=== PATIENT | female | born 1940 | race Caucasian/White ===

== ENCOUNTER 2020-09-26 06:23 | Inpatient (IN) | payer MEDICARE, OTHER, SELFPAY ==
[2020-09-26] VITALS (29 sets, daily range): BP systolic 95–130; BP diastolic 49–79; PULSE 68–114; RESP 13–32; TEMP 36.4–36.8; O2SAT 91–98; BMI 26.6
--- NOTE | 2020-09-26 06:33 | XR_ITS ---
WS: [id number] Exam: XR chest 1V portable [id number] Date/Time of Exam: 09/26/2020 6:51 AM Reason For Exam: dyspnea/cough Comparison 10/18/2017. Mild cardiac enlargement unchanged. The lungs are fully expanded and clear. Pulmonary vascularity mil dly prominent. No pleural effusions. The mediastinum and bony thorax are unremarkable. XR/XR chest 1V portable [id number] IMPRESSION: 1. No acute cardiopulmonary finding. 2. Slightly increased pulmonary vascularity and mild cardiac enlargement unchan ged.
--- NOTE | 2020-09-26 06:37 | ECG_ITS ---
[facility] Test Date: 2020-09-26 Pat Name: Pooja Bernabe Department: Room: Gender: Female Log Data Technician: : 1940 Requested By: Oz Chan Order Number: [id number] Reading MD: Lynda Granados M.D. Measurements Intervals [place] Rate: 87 P: NM: QRS: 6 QRSD: 90 T: 63 QT: 373 QTc: 451 Interpretive Statements ATRIAL FIBRILLATION with occasional PVCs NONSPECIFIC T-WAVE ABNORMALITY ABNORMAL RHYTHM ECG No previous ECG available for comparison Electronically Signed On 09-26-2020 18:03:27 VIDEO GAME PROGRAMMER by Lynda Granados M.D. [id number]
[2020-09-26 06:55] LABS: Basophils % 0.5 %; Eosinophils # 0.3 10^3/uL (0.0-0.8); Eosinophils % 4.1 %; Hematocrit 50.7 % (37.0-47.0); Hemoglobin 17.1 g/dL (11.5-15.3); Lymphocytes # 2.4 10^3/uL (0.8-4.8); Lymphocytes % 32.1 %; Mean Corpuscular HGB Conc 33.7 g/dL (30.0-36.0); Mean Corpuscular Hemoglobin 31.6 pg (28.0-34.0); Mean Corpuscular Volume 93.7 fL (81-99); Mean Platelet Volume 10.5 fL (7.4-10.4); Monocytes # 0.8 10^3/uL (0.2-0.9); Monocytes % 9.9 %; Neutrophils # 4.04 10^3/uL (1.8-7.7); Nucleated Red Blood Cells % 0 %; Platelet Count 193 10^3/cmm (130-400); Red Blood Count 5.41 10^6/uL (4.1-5.3); White Blood Count 7.6 10^3/uL (4.0-10.0)
[2020-09-26 07:07] LABS: Troponin(5th) Baseline 15 ng/L (0-10)
[2020-09-26 07:17] LABS: Alanine Aminotransferase 20 U/L (0-33); Albumin Level 4.5 g/dL (3.5-5.2); Alkaline Phosphatase 89 IU/L (35-105); Anion Gap 17.5 (5-19); Aspartate Amino Transferase 21 U/L (0-32); Blood Urea Nitrogen 20 mg/dL (8-23); Calcium 9.7 mg/dL (8.5-10.5); Carbon Dioxide 26 mmol/L (22-29); Chloride 100 mmol/L (98-107); Globulin 2.5 g/dL (1.3-4.6); Glucose 164 mg/dL (65-115); Osmolality Calculated 296 mOsm/kg (285-295); Potassium 3.5 mmol/L (3.5-5.1); Sodium 140 mmol/L (136-145); Thyroid Stimulating Hormone 0.76 uIU/mL (0.27-4.20); Total Bilirubin 0.6 mg/dL (0.15-1.2)
--- NOTE | 2020-09-26 07:43 | ED_ITS ---
HPI - Chest Pain General: Chief Complaint: Chest Pain Stated Complaint: AFIB W RVR Time Seen by Provider: 09/26/20 06:27 History of Present Illness: HPI narrative: 80-year-old female with a history of A. fib presents morning in A. fib with RVR to EMS she was given Cardizem bolus and rate decreased. On arrival here she is in range of 100 and then decreased into the 80s. She had some chest discomfort with the palpitation sensation. She has not had previous bypass or PTCA. She tells me in the past she was thought to have atrial fibrillation but then they told her it was due to some valves. She is on metoprolol but she is not on any anticoagulation. MD complaint: chest heaviness Pertinent past history: other (Valvular heart disease) Onset (ago): hour(s) Timing of current episode: episodic Prior episodes: Yes Onset: during rest Pain location: left chest and lateral Pain radiation: none Severity: moderate Quality: heaviness Exacerbating factors: nothing Associated symptoms: Reports nausea and palpitations; Deny abdominal pain, diaphoresis, dyspnea, fever(s), leg edema, sense of impending doom, syncope or vomiting Treatment prior to arrival: none Review of Systems Const: Denies: fever(s) or diaphoresis ENMT: Denies: throat pain, ear or mastoid pain, nasal discharge or nasal conge stion Card: Reports: palpitations; Denies: syncope Resp: Denies: dyspnea GI: Reports: nausea; Denies: abdominal pain or vomiting : Denies: flank pain, difficulty voiding, dysuria, urinary frequency or urinary urgency Skin/Breast: Denies: rash or pruritus PFS ED PFSH: Medical History Aortic insufficiency Diabetes mellitus Dyslipidemia Essential hypertension GERD (gastroesophageal reflux disease) Hypertension Hypothyroidism Mitral regurgitation Narrow complex tachycardia Tinnitus Venous stasis Surgical History History of appendectomy (~2007) [facility] History of dilatation and curettage (~1993) Family History Mother Hypercholesteremia Hypertension Stroke Social History (Reviewed 09/26/20 @ 16:10 by TEMI Chavarria Smoking and tobacco status: never smoked Alcohol intake: never Household members: spouse Marital status: Physical Exam Const: COMMON NORMALS: no acute distress GENERAL APPEARANCE: cooperative and comfortable ORIENTATION/CONSCIOUSNESS: Yes awake, Yes oriented to person, Yes oriented to place and Yes oriented to time HENMT: COMMON NORMALS: normocephalic, atraumatic and hearing grossly normal bilaterally HEAD & SCALP: normocephalic and atraumatic Neck/C-Spine: COMMON NORMALS: no JVD Resp: COMMON NORMALS: normal respiratory effort, No retractions, No use of accessory muscles and clear to auscultation bilaterally AUSCULTATION: clear to auscultation bilaterally Cardio: COMMON NORMALS: no JVD and No murmurs present (Cardio) RATE: tachycardic RHYTHM: abnormal rhythm irregularly irregular GI: COMMON NORMALS: Soft to palpation and No hepatosplenomegaly present AUSCULTATION: Yes normoactive bowel sounds PALPATION: Yes Soft to palpation, No Tenderness to palpation present (GI), No Guarding due to palpation present (GI) and Yes No hepatosplenomegaly present Extremity: COMMON NORMALS: normal to inspection, capillary refill normal, no clubbing, cyanosis or edema, no calf tenderness and no pedal edema Neuro: SENSORIUM/ORIENTATION: Yes oriented to person, Yes oriented to place and Yes oriented to time Skin: COMMON NORMALS: no rashes or lesions noted GENERAL SKIN EXAM: no rashes or lesions noted Course Vital Signs: Vital signs: Vital Signs Temperature 97.7 F 09/26/20 15:08 Pulse Rate 88 09/26/20 15:08 Respiratory Rate 24 H 09/26/20 15:08 Blood Pressure 130/75 09/26/20 15:08 Pulse Oximetry 95 09/26/20 15:08 MDM - Chest Pain MDM Narrative: Medical decision making narrative: Patient intermittently tachycardic given IV and p.o. metoprolol discussed with Dr. Denise and will place on observation for rate control monitor troponins and other symptoms. Lab Data: Labs: Lab Results 09/26/20 09/26/20 09/26/20 Range/Units 06:40 06:40 06:40 WBC 7.6 (4.0-10.0) 10^3/ uL RBC 5.41 H (4.1-5.3) 10^6/u L Hgb 17.1 H (11.5-15.3) g/dL Hct 50.7 H (37.0-47.0) % MCV 93.7 (81-99) fL MCH 31.6 (28.0-34.0) pg MCHC 33.7 (30.0-36.0) g/dL RDW 12.0 L (12.1-15.1) % Plt Count 193 (130-400) 10^3/c mm MPV 10.5 H (7.4-10.4) fL Neut % (Auto) 53.0 % Lymph % (Auto) 32.1 % Cochran % (Auto) 9.9 % Eos % (Auto) 4.1 % Baso % (Auto) 0.5 % Neut # (Auto) 4.04 (1.8-7.7) 10^3/u L Lymph # (Auto) 2.4 (0.8-4.8) 10^3/u L Cochran # (Auto) 0.8 (0.2-0.9) 10^3/u L Eos # (Auto) 0.3 (0.0-0.8) 10^3/u L Baso # (Auto) 0.0 (0.0-0.1) 10^3/u L Nucleated RBC % (a uto) 0 % Nucleated RBCs # 0.0 /100WBC Sodium 140 (136-145) mmol/L Potassium 3.5 (3.5-5.1) mmol/L Chloride 100 (98-107) mmol/L Carbon Dioxide 26 (22-29) mmol/L Anion Gap 17.5 (5-19) BUN 20 (8-23) mg/dL Creatinine 0.6 (0.5-0.9) mg/dL GFR Calculation Not Reportable Glucose 164 H (65-115) mg/dL Calculated Osmolal ity 296 H (285-295) mOsm/k g Calcium 9.7 (8.5-10.5) mg/dL Magnesium (1.7-2.3) mg/dL Total Bilirubin 0.6 (0.15-1.2) mg/dL AST 21 (0-32) U/L ALT 20 (0-33) U/L Alkaline Phosphata se 89 (35-105) IU/L Troponin T Baselin e 15 H (0-10) ng/L Troponin T 120 Min [place] (0-10) ng/L Delta Troponin T (0-10) ABS# Total Protein 7.0 (6.6-8.7) g/dL Albumin 4.5 (3.5-5.2) g/dL Globulin 2.5 (1.3-4.6) g/dL TSH 0.76 (0.27-4.20) uIU/ mL Urine Color (Yellow) Urine Appearance (CLEAR) Urine pH (5-7) Ur Specific Gravit y (1.005-1.030) Urine Protein (Negative) Urine Glucose (UA) (Normal) Urine Ketones (Negative) Urine Blood (Negative) Urine Nitrate (Negative) Urine Bilirubin (Negative) Prot Sulfosalicyli c Acd (Negative) Urine Urobilinogen (Negative) mg/dL Ur Leukocyte Cathleen ase (Negative) Urine RBC (0-2) /hpf Urine WBC (0-5) /hpf Ur Squamous Epith Cells (0-5) /hpf Amorphous Sediment /hpf Urine Bacteria (NONE) /hpf 09/26/20 09/26/20 09/26/20 Range/Units 07:44 08:39 08:39 WBC (4.0-10.0) 10^3/ uL RBC (4.1-5.3) 10^6/u L Hgb (11.5-15.3) g/dL Hct (37.0-47.0) % MCV (81-99) fL MCH (28.0-34.0) pg MCHC (30.0-36.0) g/dL RDW (12.1-15.1) % Plt Count (130-400) 10^3/c mm MPV (7.4-10.4) fL Neut % (Auto) % Lymph % (Auto) % Cochran % (Auto) % Eos % (Auto) % Baso % (Auto) % Neut # (Auto) (1.8-7.7) 10^3/u L Lymph # (Auto) (0.8-4.8) 10^3/u L Cochran # (Auto) (0.2-0.9) 10^3/u L Eos # (Auto) (0.0-0.8) 10^3/u L Baso # (Auto) (0.0-0.1) 10^3/u L Nucleated RBC % (a uto) % Nucleated RBCs # /100WBC Sodium (136-145) mmol/L Potassium (3.5-5.1) mmol/L Chloride (98-107) mmol/L Carbon Dioxide (22-29) mmol/L Anion Gap (5-19) BUN (8-23) mg/dL Creatinine (0.5-0.9) mg/dL GFR Calculation Glucose (65-115) mg/dL Calculated Osmolal ity (285-295) mOsm/k g Calcium (8.5-10.5) mg/dL Magnesium 2.2 (1.7-2.3) mg/dL Total Bilirubin (0.15-1.2) mg/dL AST (0-32) U/L ALT (0-33) U/L Alkaline Phosphata se (35-105) IU/L Troponin T Baselin e (0-10) ng/L Troponin T 120 Min [place] 16.36 H (0-10) ng/L Delta Troponin T 1.36 (0-10) ABS# Total Protein (6.6-8.7) g/dL Albumin (3.5-5.2) g/dL Globulin (1.3-4.6) g/dL TSH (0.27-4.20) uIU/ mL Urine Color Yellow (Yellow) Urine Appearance Clear (CLEAR) Urine pH 8 H (5-7) Ur Specific Gravit y 1.015 (1.005-1.030) Urine Protein Neg (Negative) Urine Glucose (UA) Trace H (Normal) Urine Ketones Negative (Negative) Urine Blood Neg (Negative) Urine Nitrate Negative (Negative) Urine Bilirubin Neg (Negative) Prot Sulfosalicyli c Acd Positive (Negative) Urine Urobilinogen Norm (Negative) mg/dL Ur Leukocyte Cathleen ase Negative (Negative) Urine RBC Rare (0-2) /hpf Urine WBC 0-4 H (0-5) /hpf Ur Squamous Epith Cells 0-4 H (0-5) /hpf Amorphous Sediment 1+ /hpf Urine Bacteria Trace (NONE) /hpf Discharge Plan Discharge Patient Disposition: Placed in Observation Admit Provider: Mason Ly Clinical Impression: Atypical chest pain, Mitral regurgitation, Aortic insufficiency, Essential hypertension, Dyslipidemia, Atrial flutter, Elevated troponin Coding Level of Care Code ED Pole Lift Operator for Candido Bales
[2020-09-26 08:12] LABS: Add Urine Microscopic? YES; Bilirubin Urine Neg (Negative); Blood Urine Neg (Negative); Glucose Urine UA Trace (Normal); Ketones Urine Negative (Negative); Leukocyte Esterase Urine Negative (Negative); Nitrate Urine Negative (Negative); Protein Urine Neg (Negative); Specific Gravity, Urine 1.015 (1.005-1.030); Sulfosalicylic Acid Urine Positive (Negative); Urine Appearance Clear (CLEAR); Urine Color Yellow (Yellow); Urobilinogen Urine Norm (Negative); pH Urine 8 (5-7)
[2020-09-26 08:13] LABS: Add Urine Culture? No; Amorphous Sediment Urine 1+ /hpf; Bacteria Urine TRACE /hpf; RBC Urine RARE /hpf (0-2); Squamous Epithelial Cell Urine 0-4 /hpf (0-5); WBC Urine 0-4 /hpf (0-5)
--- NOTE | 2020-09-26 08:37 | ECG_ITS ---
[facility] Test Date: 2020-09-26 Pat Name: Pooja Bernabe Department: Room: Gender: Female Cowlman: : 1940 Requested By: Oz Chan Order Number: [id number] Quique MD: Lynda Granados M.D. Measurements Intervals [place] Rate: 134 P: MN: QRS: -10 QRSD: 103 T: 82 QT: 288 QTc: 431 Interpretive Statements ATRIAL FLUTTER/TACHYCARDIA WITH RAPID VENTRICULAR RESPONSE POSSIBLE ANTERIOR MYOCARDIAL INFARCTION , PROBABLY OLD [30 ms Q WAVE IN V3/V4, OR R < 0.2 mV IN V4] ABNORMAL RHYTHM ECG Compared to ECG 09/26/2020 06:33:21 Myocardial infarct finding now present Atrial fibrillation no longer present T-wave abnormality no longer present Electronically Signed On 09-26-2020 18:11:27 TDP DISPLAYS ANALYST by Lynda Granados M.D. [id number]
[2020-09-26 09:09] LABS: Troponin 5 2HR 16.36 ng/L (0-10); Troponin 5 2HR Delta 1.36 ABS# (0-10)
[2020-09-26] MEDS: metoprolol tartrate 25 mg Tablet PO (09:10)
[2020-09-26] MEDS: metoprolol tartrate 1 mg/1 mL SDV 5 mL 5 MG IV (09:10)
--- NOTE | 2020-09-26 10:42 | PC.NURSE ---
report called to med surge nurse-hospitalist down to ER and wanting to keep pt down here to start on cardizem gtt.
--- NOTE | 2020-09-26 11:01 | PM.HP ---
Providers/Chief Complaint Admitting Physician: Mason Ly MD Primary Care Provider: Randolph Solares MD Chief Complaint: AFIB W RVR History of Present Illness Pooja Bernabe is a 80 year old female that presents to the emergency department with complaints of palpitations. She reports these have been occurring since around 5 AM. They make her head feel fuzzy and give her a headache. She reports she has had palpitations before but they have only been short-lived. Looking into her previous records there is a diagnosis of tachycardia, not clearly defined an event report from October 2017 that demonstrated sinus rhythm. Old records indicate atrial fibrillation. Patient denies any fever, other illness. She reports no chest pain. She denies any history of Covid or exposure to it. She denies any blood in stool, black or tarry stool. Review of Systems General: Reports: 10 or more systems reviewed and unremarkable except in HPI and below Const: Denies: fever(s) Eyes: Denies: change in vision ENMT: Denies: throat pain Card: Reports: palpitations and irregular heart rhythm Resp: Denies: dyspnea GI: Denies: abdominal pain or nausea : Denies: flank pain Musc: Denies: neck pain Skin/Breast: Denies: rash Neuro: Denies: headache(s) Psych: Denies: anxiety Endo: Denies: polyuria Jun/Lymph: Denies: easy bruising All/Imm: Denies: urticaria Medications/Allergies Home Medications Medication Instructions Recorded Confirmed Last Taken Type aspirin 81 mg tablet,delayed 81 mg PO DAILY@11/01/19 09/26/20 09/25/20 History release coenzyme Q10 100 mg capsule 100 mg PO DAILY@11/01/19 09/26/20 09/25/20 History levothyroxine 125 mcg capsule 125 mcg PO DAILY@11/01/19 09/26/20 09/25/20 History omega-3 fatty acids 500 mg capsule 1,000 mg PO DAILY@11/01/19 09/26/20 Unknown History pravastatin 40 mg tablet 40 mg PO DAILY@11/01/19 09/26/20 09/25/20 History Lew Eye Vitamin 1 tab PO EVERY OTHER DAY 09/26/20 09/26/20 09/25/20 History chlorthalidone 25 mg PO DAILY@09/26/20 09/26/2027/21 History cholecalciferol (vitamin D3) 1,000 - 5,000 unit PO DAILY@12 09/26/20 09/26/20 09/25/20 History [Vitamin D3] cyanocobalamin (vitamin B-12) 100 mcg PO DAILY@12 09/26/20 09/26/20 Unknown History [Vitamin B-12] metoprolol tartrate 25 mg PO DAILY@19 09/26/20 09/26/20 09/25/20 History Allergies Allergy/AdvReac Type Severity Reaction Status Date / Time No Known Allergies Allergy Verified 09/26/20 09:34 PFSH Acute PFSH: Medical History (Updated 09/26/20 @ 12:45 by Mason Ly MD) Aortic insufficiency Diabetes mellitus Dyslipidemia Essential hypertension GERD (gastroesophageal reflux disease) Hypertension Hypothyroidism Mitral regurgitation Narrow complex tachycardia Tinnitus Venous stasis Surgical History (Updated 09/26/20 @ 11:04 by Mason Ly MD) [facility] History of dilatation and curettage (~1993) Family History Mother Hypercholesteremia Hypertension Stroke Social History Smoking and tobacco status: never smoked Alcohol intake: never Household members: spouse Marital status: Vitals/I&O/Wt Last Vital Signs Temp 98.3 F 09/26/20 06:36 Pulse 106 H 09/26/20 08:32 Resp 15 09/26/20 08:32 BP 113/57 09/26/20 08:32 Pulse Ox 97 09/26/20 08:32 Weight last 48 hrs Weight 70.307 kg Physical Exam Narrative: EXAM NARRATIVE: General exam is a white female in no apparent distress with an accelerated heart rate of approximately 130, irregular. A. fib/flutter on compliance monitor. HEENT: Pupils equally round. Oropharynx clear. Neck is supple no lymphadenopathy or thyromegaly Cardiovascular irregular, irregular with a 2/6 systolic murmur Lungs clear no wheezing or crackles Abdomen is soft with positive bowel sounds. No obvious organomegaly was deferred Extremities no cyanosis clubbing or edema, cap refill brisk Skin no rash Neuro no obvious focal deficits. Data : 09/26/20 06:40 09/26/20 06:40 Other data: Troponin is 15 with repeat of 16 and 120 minutes. TSH is normal. LFTs normal. Urinalysis 0-4 whites, rare reds. Chest x-ray per my read mild congestion. EKG demonstrates atrial fibrillation/flutter, borderline left axis deviation, nonspecific ST-T wave changes and occasional PVC. Previous echocardiogram October 2018 demonstrated EF of 55%, 2/4 diastolic dysfunction. Previous nuclear stress test 2017 - A&P Assessment and plan (1) Atrial flutter: Observation initially, CSU placed on a Cardizem drip. Increase metoprolol to 50 mg twice daily and try to wean off Cardizem drip Anticoagulation with Lovenox initially, then convert to Eliquis. Discussed with patient regarding risks and benefits which she acknowledges Potassium 40 mEq p.o. for potassium of 3.5. Check magnesium level. Check echocardiogram Status: Acute (2) Elevated troponin: Type II. Secondary to atrial fibrillation with rapid ventricular rate Status: Acute (3) Diabetes mellitus: Sliding scale insulin Status: Inactive (4) Hypothyroidism: TSH checked and normal Status: Inactive Additional A&P Information Multiple other medical problems as outlined in past medical history Full code Lovenox for DVT prophylaxis Attestations Medical Necessity Statement*: Will need less than 2 midnight stay for evaluation and treatment of atrial fibrillation with rapid ventricular rate Time Spent in Patient Care: Greater than 35 minutes Coding Level of Care Code Acute Watch Parts Inspector for g Fwd Diagnoses Atrial flutter I48.92 Elevated troponin R77.8 Diabetes mellitus E11.9 Hypothyroidism E03.9
--- NOTE | 2020-09-26 11:19 | USCV_ITS ---
Pooja Bernabe Age: 80 Gender: F : 1940 Exam Date: 09/26/2020 15:37 Ordering Phys: Mason Ly MD Technologist: Bertha Davis Exam Location: [facility] [place] Indication: AFIB BP: 130 / 75 HR: 91 Rhythm: Atrial fibrillation Technical Quality: Adequate MEASUREMENTS (Male / Female) Normal Values 2D ECHO LV Diastolic Diameter PLAX 4.2 cm 4.2 - 5.9 / 3.9 - 5.3 cm LV Systolic Diameter PLAX 2.7 cm IVS Diastolic Thickness 1.4 cm 0.6 - 1.0 / 0.6 - 0.9 cm IVS Systolic Thickness 1.8 cm LVPW Diastolic Thickness 1.1 cm 0.6 - 1.0 / 0.6 - 0.9 cm LVPW Systolic Thickness 1.4 cm LVOT Diameter 2.0 cm LV Ejection Fraction 2D Teich 66.1 % LV Ejection Fraction MOD 2C 60.5 % LV Ejection Fraction 2C AL 61.0 % LA Diameter 3.9 cm LA Width 2.8 cm LA Height 4.7 cm RA Width 2.6 cm RA Height 4.8 cm Aorta at Sinotubular Diameter 2.3 cm M-MODE LV Diastolic Diameter MM 4.6 cm 4.2 - 5.9 / 3.9 - 5.3 cm LV Systolic Diameter MM 2.3 cm LV Ejection Fraction MM Teich 81.3 % IVS Diastolic Thickness MM 1.5 cm 0.6 - 1.0 / 0.6 - 0.9 cm IVS Systolic Thickness MM 1.9 cm LVPW Diastolic Thickness MM 1.0 cm 0.6 - 1.0 / 0.6 - 0.9 cm LVPW Systolic Thickness MM 1.8 cm Aortic Annulus Diameter 2.6 cm LA Ao Ratio MM 1.6 MV E Point Septal Separation 0.5 cm DOPPLER AV Peak Velocity 183.0 cm/s LVOT Peak Velocity 105.0 cm/s AV Area Cont Eq vti 1.7 cm squared AV Area Cont Eq pk 1.8 cm squared MV Area PHT 4.6 cm squared Mitral E to A Ratio 1.9 MV E' Velocity 55.5 cm/s Mitral E to MV E' Ratio 9.9 Mitral E to LV E' Lateral Ratio 8.9 Mitral E to LV E' Septal Ratio 11.2 TR Peak Velocity 247.1 cm/s TR Peak Gradient 24.4 mmHg TR Mean Velocity 199.1 cm/s TR Mean Gradient 16.5 mmHg TR Velocity Time Integral 64.7 cm TV Peak E Velocity 103.0 cm/s Right Atrial Pressure 3.0 mmHg Pulmonary Artery Systolic Pressu 27.4 mmHg PV Peak Velocity 67.0 cm/s RV Acceleration Time 0.1 s RV Ejection Time 0.2 s RV AcT/ET 0.3 FINDINGS Left Ventricle Normal left ventricular size, systolic function and wall thickness, with no regional wall motion abnormalities. Left ventricular ejection fraction is estimated at 60 %. Rhythm precludes evaluation of diastolic function. Right Ventricle Normal right ventricular size and systolic function. Right ventricular systolic pressure 35 mmHg. Right Atrium Upper normal right atrial size. Right atrial pressure estimated at 3 mmHg. Left Atrium Mildly increased left atrial size. Mitral Valve Thickened mitral valve. No mitral valve stenosis. Mild mitral valve regurgitation. Aortic Valve Aortic valve not well visualized. No aortic valve stenosis. Mild to moderate aortic valve regurgitation. Tricuspid Valve Structurally normal tricuspid valve. Trace to mild tricuspid valve regurgitation. Pulmonic Valve Pulmonic valve not well visualized. Trace pulmonary valve regurgitation. Pericardium No pericardial effusion. Aorta Normal size aortic root and proximal ascending aorta. Normal- sized inferior vena cava with normal respiratory variation. CONCLUSIONS 1. Normal left ventricular size, systolic function and wall thickness, with no regional wall motion abnormalities. Left ventricular ejection fraction is estimated at 60 %. 2. Normal right ventricular size and systolic function. 3. Pulmonary artery pressure estimated at 35 mmHg. 4. Mild to moderate aortic valve regurgitation. 5. Mild mitral valve regurgitation. 6. When compared to previous echocardiogram dated 11/11/2018, aortic valve regurgitation seems to have worsened. Angelique Lewis MD (Electronically Signed) Final Date: 26 September 2020 17:09 S
[2020-09-26] MEDS: enoxaparin 80 mg/0.8 mL Syringe 70 MG SUBCUT ×2 (11:27→22:33)
[2020-09-26] MEDS: potassium chloride ER 20 mEq Tablet 40 MEQ PO (11:28)
[2020-09-26 11:44] LABS: Magnesium 2.2 mg/dL (1.7-2.3)
--- NOTE | 2020-09-26 12:37 | ECG_ITS ---
[facility] Test Date: 2020-09-26 Pat Name: Pooja Bernabe Department: Room: 255 Gender: Female Chairman: : 1940 Requested By: Oz Chan Order Number: [id number] Quique MD: Lynda Granados M.D. Measurements Intervals [place] Rate: 75 P: AR: QRS: -7 QRSD: 87 T: 65 QT: 343 QTc: 383 Interpretive Statements SUPRAVENTRICULAR RHYTHM POSSIBLE ANTERIOR MYOCARDIAL INFARCTION , PROBABLY OLD [30 ms Q WAVE IN V3/V4, OR R < 0.2 mV IN V4] ABNORMAL RHYTHM ECG Compared to ECG 09/26/2020 09:02:20 Supraventricular rhythm now present Atrial flutter no longer present Myocardial infarct finding still present Electronically Signed On 09-26-2020 18:12:28 NURSE AIDE by Lynda Granados M.D. [email or web address] adult care unitBringme[facility] health.[employer]/store/OM/[id number]
[2020-09-26 13:19] LABS: Troponin 5 6HR 16.39 ng/L (0-10); Troponin 5 6HR Delta 1.39 ng/L (0-12)
--- NOTE | 2020-09-26 13:30 | PC.NURSE ---
EKG done at 1315 and shown to ER doctor and hospitalist.
--- NOTE | 2020-09-26 14:15 | PC.NURSE ---
From ER via stretcher Received pt A,Ox4, denies any pain. not in resp distress. Cardizem drip running at 15 mls/hr per protocol. HR ranges from 70s to 90s. Cardizem drip down to 10 mls/hr per protocol. IVs intact on both arms. Call light provided. Oriented pt to staff.
--- NOTE | 2020-09-26 19:13 | PC.NURSE ---
Received report from IAN Muniz. Patient resting in bed watching TV. Discussed patient's palpitations and she stated, I have never had this happen before. Discussed Cardizem gtt and patient verbalized complete understanding. Patient's heart rate upper 70s to low 80s presently and appears to be in SR. Decreased Cardizem to 5mg/hr. Patient denies any pain or needs at this time. No distress observed.
[2020-09-26] MEDS: atorvastatin 40 mg Tablet 20 MG PO (19:55)
[2020-09-26] MEDS: aspirin 81 mg EC Tablet PO (19:55)
[2020-09-26] MEDS: metoprolol tartrate 50 mg Tablet PO (19:56)
--- NOTE | 2020-09-26 19:58 | PC.NURSE ---
Administered Metoprolol a few minutes early to provide clustered care.
--- NOTE | 2020-09-26 22:37 | PC.NURSE ---
Patient heart rate running mid 60s to high 70s. Patient denies any discomfort. No distress observed.
[2020-09-27] VITALS (10 sets, daily range): BP systolic 104–127; BP diastolic 56–83; PULSE 76–89; RESP 12–20; TEMP 36.2–36.9; O2SAT 95–98
[2020-09-27 04:42] LABS: Basophils # 0.1 10^3/uL (0.0-0.1); Basophils % 0.5 %; Eosinophils # 0.2 10^3/uL (0.0-0.8); Eosinophils % 1.7 %; Hematocrit 48.3 % (37.0-47.0); Lymphocytes # 2.2 10^3/uL (0.8-4.8); Lymphocytes % 20.8 %; Mean Corpuscular HGB Conc 33.1 g/dL (30.0-36.0); Mean Corpuscular Hemoglobin 31.7 pg (28.0-34.0); Mean Corpuscular Volume 95.8 fL (81-99); Mean Platelet Volume 10.5 fL (7.4-10.4); Monocytes # 1.1 10^3/uL (0.2-0.9); Monocytes % 10.2 %; Neutrophils # 7.15 10^3/uL (1.8-7.7); Neutrophils % 66.2 %; Nucleated Red Blood Cells % 0 %; Platelet Count 204 10^3/cmm (130-400); Red Blood Count 5.04 10^6/uL (4.1-5.3); Red Cell Distribution Width 12.3 % (12.1-15.1); White Blood Count 10.8 10^3/uL (4.0-10.0)
[2020-09-27 04:55] LABS: Alanine Aminotransferase 17 U/L (0-33); Albumin Level 3.5 g/dL (3.5-5.2); Alkaline Phosphatase 67 IU/L (35-105); Anion Gap 12.4 (5-19); Aspartate Amino Transferase 15 U/L (0-32); Blood Urea Nitrogen 16 mg/dL (8-23); Calcium 9.4 mg/dL (8.5-10.5); Carbon Dioxide 28 mmol/L (22-29); Chloride 102 mmol/L (98-107); Globulin 2.6 g/dL (1.3-4.6); Glucose 132 mg/dL (65-115); Osmolality Calculated 291 mOsm/kg (285-295); Potassium 3.4 mmol/L (3.5-5.1); Sodium 139 mmol/L (136-145); Total Bilirubin 0.7 mg/dL (0.15-1.2); Total Protein 6.1 g/dL (6.6-8.7)
[2020-09-27] MEDS: levothyroxine 125 mcg Tablet PO (06:04)
[2020-09-27] MEDS: chlorthalidone 25 mg Tablet PO (06:04)
--- NOTE | 2020-09-27 06:39 | PC.NURSE ---
Patient up to bathroom and grooming self. Patient heart rate has been 70s to 80s all night. Cardizem drip was paused earlier as documented. Patient current heart rate running 110s to 130s. Patient does report feeling palpitations in her chest but no other discomforts. Informed Dr Stanford and received direction to restart Cardizem gtt. Will restart at 10ml/hr.
[2020-09-27] MEDS: metoprolol tartrate 50 mg Tablet PO ×2 (08:03→21:16)
[2020-09-27] MEDS: potassium chloride ER 20 mEq Tablet 40 MEQ PO (08:03)
[2020-09-27] MEDS: apixaban 5 mg Tablet PO ×2 (08:03→18:43)
[2020-09-27] MEDS: dilTIAZem 30 mg Tablet PO ×2 (08:03→13:55)
[2020-09-27] MEDS: pantoprazole DR 40 mg Tablet PO (08:03)
--- NOTE | 2020-09-27 08:21 | PM.PN ---
Subjective Subjective: Interval history: Pooja reports she is doing okay. She had some palpitations last night. Cardizem was restarted as heart rate increased. Medications: Reviewed: Yes Vitals/I&O/Wt Last Vital Signs Temp 98.2 F 09/27/20 08:00 Pulse 89 09/27/20 08:00 Resp 16 09/27/20 08:00 BP 127/83 09/27/20 08:00 Pulse Ox 98 09/27/20 08:00 09/26/20 09/27/20 09/27/20 22:59 06:59 14:59 Intake Total 540.583 / 582.000 0 / 582.000 200 / 200 Balance 540.583 / 582.000 0 / 582.000 200 / 200 Weight last 48 hrs Weight 70.307 kg Physical Exam Narrative: EXAM NARRATIVE: General exam is a white female in no apparent distress. Telemetry indicates a heart rate of 85, atrial flutter Neck is supple no lymphadenopathy or thyromegaly Cardiovascular irregular, irregular with a 2/6 systolic murmur Lungs clear no wheezing or crackles Abdomen is soft with positive bowel sounds. No obvious organomegaly Extremities no cyanosis clubbing or edema, cap refill brisk Data : 09/27/20 04:04 09/27/20 04:04 A&P Assessment and plan (1) Atrial flutter: Placed on Cardizem 30 mg every 6 hours. Wean off Cardizem drip as tolerated Continue metoprolol to 50 mg twice daily Convert to Eliquis. Discussed with patient regarding risks and benefits which she acknowledges Potassium 40 mEq p.o. for potassium of 3.4. Echocardiogram demonstrates preserved EF, no wall motion abnormalities, moderate aortic regurgitation Cardiology consultation Status: Acute (2) Elevated troponin: Type II. Secondary to atrial fibrillation with rapid ventricular rate Status: Acute (3) Diabetes mellitus: Sliding scale insulin Status: Inactive (4) Hypothyroidism: TSH checked and normal Status: Inactive Additional A&P Information Multiple other medical problems as outlined in past medical history Full code Lovenox for DVT prophylaxis Attestations Medical Necessity Statement*: Needs continued hospitalization pending rhythm control. May need to convert to regular admission depending on response to oral Cardizem. Coding Level of Care Code Acute Ordnance Engineering Technician for [facility] Fwlarissa Diagnoses Atrial flutter I48.92 Elevated troponin R77.8 Diabetes mellitus E11.9 Hypothyroidism E03.9
--- NOTE | 2020-09-27 09:02 | P.CONIM_ITS ---
Providers/Reason For Consult Consulting Physican/Specialty*: Enmanuel Means MD/ Cardiology Reason for Consult*: Atrial fibrillaton Attending Physician: Mason Ly MD Primary Care Provider: Randolph Solares MD History of Present Illness History of Present Illness 80 year old female with PMH of hypertension, hyperlipidemia, narrow complex tachycardia who presented to the emergency department with complaints of palpitations. She started having these symptoms at 5 PM yesterday. This is associated with dizziness. No prior episodes of prolonged palpitations. Event monitor in the past did not show atrial fibrillation. Patient denies any fever, other illness.No chest pain. Mild shortness of breath. Review of Systems Const: Denies: fever(s) or chills Eyes: Denies: change in vision ENMT: Denies: throat pain Card: Reports: irregular heart rhythm, swelling of feet/ankles and dyspnea on exertion; Denies: chest pain or lightheadedness Resp: Denies: non-productive cough or wheezing GI: Reports: heartburn Musc: Denies: back pain Neuro: Denies: headache(s) or dizziness Jun/Lymph: Reports: easy bruising; Denies: easy bleeding Meds/Allergies Home Medications and Allergies Home Medications Medication Instructions Recorded Confirmed Last Taken Type aspirin 81 mg tablet,delayed 81 mg PO DAILY@11/01/19 09/26/20 09/25/20 History release coenzyme Q10 100 mg capsule 100 mg PO DAILY@11/01/19 09/26/20 09/25/20 History levothyroxine 125 mcg capsule 125 mcg PO DAILY@11/01/19 09/26/20 09/25/20 History omega-3 fatty acids 500 mg capsule 1,000 mg PO DAILY@11/01/19 09/26/20 Unknown History pravastatin 40 mg tablet 40 mg PO DAILY@11/01/19 09/26/20 09/25/20 History Lew Eye Vitamin 1 tab PO EVERY OTHER DAY 09/26/20 09/26/20 09/25/20 History chlorthalidone 25 mg PO DAILY@09/26/20 09/26/20 09/25/20 History cholecalciferol (vitamin D3) 1,000 - 5,000 unit PO DAILY@09/26/20 09/26/20 09/25/20 History [Vitamin D3] cyanocobalamin (vitamin B-12) 100 mcg PO DAILY@12 09/26/20 09/26/20 Unknown History [Vitamin B-12] metoprolol tartrate 25 mg PO DAILY@19 09/26/20 09/26/20 09/25/20 History Allergies Allergy/AdvReac Type Severity Reaction Status Date / Time No Known Allergies Allergy Verified 09/26/20 09:34 Current Medications Current Medications Generic Name Dose Route Start Last Admin Trade Name Ortiz PRN Reason Stop Dose Admin Apixaban 5 mg 09/27/20 09:00 09/27/20 08:03 Apixaban 5 Mg Tablet PO 5 mg BID GIO Administration Aspirin 81 mg 09/26/20 19:00 09/26/20 19:55 Aspirin 81 Mg Ec Tablet PO 81 mg DAILY@19 GIO Administration Atorvastatin Calcium 20 mg 09/26/20 19:00 09/26/20 19:55 Atorvastatin 40 Mg Tablet PO 20 mg DAILY@19 GIO Administration Chlorthalidone 25 mg 09/27/20 07:00 09/27/20 06:04 Chlorthalidone 25 Mg Tablet PO 25 mg DAILY@07 GIO Administration Diltiazem HCl 30 mg 09/27/20 07:15 09/27/20 08:03 Diltiazem 30 Mg Tablet PO 30 mg Q6H GIO Administration Diltiazem HCl 125 mg/ Sodium 125 mls @ 0 mls/hr 09/26/20 11:00 09/27/20 06:44 Chloride IV 10 mg/hr .Q0M GIO 10 mls/hr Titration Protocol Per Protocol Levothyroxine Sodium 125 mcg 09/27/20 07:00 09/27/20 06:04 Levothyroxine 125 Mcg Tablet PO 125 mcg DAILY@07 GIO Administration Metoprolol Tartrate 50 mg 09/26/20 21:00 09/27/20 08:03 Metoprolol Tartrate 50 Mg Tablet PO 50 mg BID@0900,2100 GIO Administration Pantoprazole Sodium 40 mg 09/27/20 09:00 09/27/20 08:[address] 40 Mg Tablet PO 40 mg DAILY GIO Administration PFSH Acute PFSH: Medical History Aortic insufficiency Diabetes mellitus Dyslipidemia Essential hypertension GERD (gastroesophageal reflux disease) Hypertension Hypothyroidism Mitral regurgitation Narrow complex tachycardia Tinnitus Venous stasis Surgical History History of appendectomy (~2007) [facility] History of dilatation and curettage (~1993) Family History Mother Hypercholesteremia Hypertension Stroke Social History Smoking and tobacco status: never smoked Alcohol intake: never Household members: spouse Marital status: Vitals/I&O/Wt Last Vital Signs Temp 98.2 F 09/27/20 08:00 Pulse 89 09/27/20 08:00 Resp 16 09/27/20 08:00 BP 127/83 09/27/20 08:00 Pulse Ox 98 09/27/20 08:00 09/26/20 09/27/20 09/27/20 22:59 06:59 14:59 Intake Total 540.583 / 582.000 0 / 582.000 200 / 200 Balance 540.583 / 582.000 0 / 582.000 200 / 200 Weight last 48 hrs Weight 155 lb Physical Exam Narrative: EXAM NARRATIVE: General exam : Alert and oriented x 3. HEENT: Pupils equally round. Oropharynx clear. Neck is supple no lymphadenopathy or thyromegaly Cardiovascular:irregularly irregular with a 2/6 systolic murmur Lungs clear no wheezing or crackles Abdomen is soft with positive bowel sounds. No obvious organomegaly was deferred Extremities no cyanosis clubbing or edema, cap refill brisk Skin no rash Neuro no obvious focal deficits. A&P Assessment and plan (1) Atrial flutter: Status: Acute (2) Narrow complex tachycardia: Status: Acute (3) Dyslipidemia: Status: Acute (4) Essential hypertension: Status: Acute (5) Aortic insufficiency: Status: Acute (6) Mitral regurgitation: Status: Acute Patient has newly diagnosed atrial flutter/atrial fibrillation. Her CHADS VASC score is 4 which puts her at significant risk of stroke. Initiate Eliquis 5mg BID Continue cardizem gtt. Uptitrate PO cardizem to 60mg q 6hr and wean down cardiz em gtt Will monitor in hospital today. Heart rate is better controlled however becomes tachycardic on walking If heart rate does not improve over the weekend, can consider SANTHOSH guided cardioversion on Wednesday Thank you for involving us with care of this patient. We will continue to follow. Please call with questions. Coding Level of Care Code Acute Courtroom Clerk for Candido Tabaresd Diagnoses Atrial flutter I48.92 Narrow complex tachycardia I47.1 Dyslipidemia E78.5 Essential hypertension I10 Aortic insufficiency I35.1 Mitral regurgitation I34.0
--- NOTE | 2020-09-27 12:21 | PC.CHAP ---
Pastoral Care Encounter/Spiritual Assessment Type of Contact [] Declined weed cutter visit [] Patient/Family/Request visit [] Outpatient visit [] Follow-up visit [] Physician referral [] Code/Alert [xx] Routine visit [] Staff referral [] Actively dying [] Patient sleeping [] Family support [] [] Out of room [] Palliative care [] [] Receiving care in room [] Pre-surgical visit [] Trauma [] Long length of stay [] ICU visit [] Other: Relational/Emotional Strength [xx] Patient feels connected with others/family/visitors/staff [] Distress [] Loneliness/isolation [] Abandonment Spirituality of Patient [xx] Person of Kandi [xx] Attends Orthodox of their Kandi [xx] Believes in Prayer [xx] Reads Bible or Uatsdin materials [] There are Spiritual issues to be addressed Commissioner Of Relocation Services Interventions [xx] Prayer [xx] Active listening [xx] Non-anxious presence [] Spiritual/emotional support [] Crisis/trauma care [] Spiritual counseling [] Bereavement support [] Provided bereavement packet [xx] Provided Bible/devotional materials [] Provided toy/stuffed animal, coloring book to patient or family member [] Provided Communion [] Anointing/Kindred [] Salvation [xx] Completed spiritual assessment [] Other: Impact on Illness or Injury [] Angry [] Fearful [] Anxious [] Often cries [] Exhaustion [] Unable to work [] Unable to attend confucianist [] Unable to walk/stand [] Unable to read [] Unable to drive [] Unable to eat/drink [] Unable to sleep [xx] Unable to be with family [] Patient intubated [] Other: Summary Patient anxious to go home as she does not like hospitals, especially on iram days per her statement. Her may not visit until she is discharged and he can take her home. Very pleasant visit and prayer time. Time spent with patient 17 minutes
--- NOTE | 2020-09-27 12:49 | PC.NURSE ---
cardizem drip off HR-70s to 80s, afib.
--- NOTE | 2020-09-27 14:16 | PC.NURSE ---
AMBULATED DOWN HALLWAYS WITH HER AT HER SIDE. TELE-BOX ATTACHED TO MONITOR PT HR WHEN SHE IS ON ACTIVITY. HR RANGES FROM 80S TO 90S. DR NOTIFIED. PT TOLERATED THE ACTIVITY WELL.
--- NOTE | 2020-09-27 18:14 | PC.NURSE ---
PT REPORTED SHE AMBULATED DOWN HALLWAYS AND USE THE BATHROOM AND STARTED TO FEEL NOT WELL WITH HER HEART RATE POUNDING AND RACING. PT HAD AN EPISODE OF AFIB WTH RVR IN 120S-130S NOTED ON THE TELEMETRY. PT INSTRUCTED TO REST IN BED AND NOTIFY NURSE BEFORE SHE GOES FOR A WALK OR GO TO THE BATHROOM. NOTIFIED VIA VOALTE PHONE. RECEIVED TELEPHONE ORDERS READ BACK TO INCREASE HER DILTIAZEM FROM 30 MG TO 60 MG Q6H TO GIVE FIRST DOSE NOW.
[2020-09-27] MEDS: dilTIAZem 60 mg Tablet PO (18:43)
[2020-09-27] MEDS: aspirin 81 mg EC Tablet PO (18:43)
[2020-09-27] MEDS: atorvastatin 40 mg Tablet 20 MG PO (18:43)
[2020-09-27 20:39] LABS: Glucose Point of Care 125 mg/dL (70-110)
[2020-09-28] MEDS: dilTIAZem 60 mg Tablet PO ×2 (00:48→06:38)
[2020-09-28 03:58] VITALS: BP 121/62; PULSE 77; RESP 18; TEMP 36.6
[2020-09-28 04:27] LABS: Basophils # 0.1 10^3/uL (0.0-0.1); Basophils % 0.6 %; Eosinophils # 0.3 10^3/uL (0.0-0.8); Eosinophils % 2.8 %; Hematocrit 48.6 % (37.0-47.0); Lymphocytes # 2.6 10^3/uL (0.8-4.8); Lymphocytes % 28.2 %; Mean Corpuscular HGB Conc 32.9 g/dL (30.0-36.0); Mean Corpuscular Hemoglobin 31.9 pg (28.0-34.0); Mean Corpuscular Volume 96.8 fL (81-99); Monocytes % 11.2 %; Neutrophils # 5.14 10^3/uL (1.8-7.7); Neutrophils % 56.8 %; Nucleated Red Blood Cells % 0 %; Platelet Count 197 10^3/cmm (130-400); Red Blood Count 5.02 10^6/uL (4.1-5.3); Red Cell Distribution Width 12.4 % (12.1-15.1)
[2020-09-28 05:06] LABS: Blood Urea Nitrogen 20 mg/dL (8-23); Calcium 9.3 mg/dL (8.5-10.5); Carbon Dioxide 26 mmol/L (22-29); Chloride 102 mmol/L (98-107); Glucose 132 mg/dL (65-115); Osmolality Calculated 292 mOsm/kg (285-295); Sodium 139 mmol/L (136-145)
[2020-09-28 06:00] VITALS: PULSE 87
[2020-09-28] MEDS: levothyroxine 125 mcg Tablet PO (06:38)
[2020-09-28] MEDS: chlorthalidone 25 mg Tablet PO (06:38)
[2020-09-28 07:24] VITALS: BP 122/67; PULSE 78; RESP 16; TEMP 36.4; O2SAT 97
[2020-09-28 07:29] LABS: Glucose Point of Care 132 mg/dL (70-110)
--- NOTE | 2020-09-28 07:57 | PM.PN ---
Subjective Subjective: Interval history: Patient is feeling better today. Denies any complaints of chest pain or shortness of breath. Says that right now is feeling weak. Heart rate has been stable overnight other than brief episodes where he did she become tachycardic and bradycardic. Vitals/I&O/Wt Last Vital Signs Temp 97.6 F 09/28/20 07:24 Pulse 78 09/28/20 07:24 Resp 16 09/28/20 07:24 BP 122/67 09/28/20 07:24 Pulse Ox 97 09/28/20 07:24 09/27/20 09/28/20 09/28/20 22:59 06:59 14:59 Intake Total 420 / 883.000 Balance 420 / 883.000 Physical Exam Narrative: EXAM NARRATIVE: General exam : Alert and oriented x 3. HEENT: Pupils equally round. Oropharynx clear. Neck is supple no lymphadenopathy or thyromegaly Cardiovascular:irregularly irregular with a 2/6 systolic murmur Lungs clear no wheezing or crackles Abdomen is soft with positive bowel sounds. No obvious organomegaly was deferred Extremities no cyanosis clubbing or edema, cap refill brisk Skin no rash Neuro no obvious focal deficits. Data : 09/28/20 03:28 09/28/20 03:28 A&P Assessment and plan (1) Atrial flutter: Status: Acute (2) Narrow complex tachycardia: Status: Acute (3) Dyslipidemia: Status: Acute (4) Essential hypertension: Status: Acute (5) Aortic insufficiency: Status: Acute (6) Mitral regurgitation: Status: Acute Patient has newly diagnosed atrial flutter/atrial fibrillation. Her CHADS VASC score is 4 which puts her at significant risk of stroke. Continue Eliquis 5mg BID Continue Cardizem. We will put her on Cardizem 120 mg twice daily. Continue metoprolol Heart rate is mostly controlled. She can safely be discharged at this time. I have given her warning symptoms of persistent tachycardia, palpitations and chest pain. If these happen she should come back to emergency room. I will see her in office in 1 week and we can evaluate the need for SANTHOSH /cardioversion. Thank you for involving us with care of this patient. We will continue to follow. Please call with questions. Attestations Medical Necessity Statement*: Care expected to cross 2 midnights. Coding Level of Care Code Acute Regulatory Compliance Director for Chg Fwd Diagnoses Atrial flutter I48.92 Narrow complex tachycardia I47.1 Dyslipidemia E78.5 Essential hypertension I10 Aortic insufficiency I35.1 Mitral regurgitation I34.0
[2020-09-28] MEDS: metoprolol tartrate 50 mg Tablet PO (08:33)
[2020-09-28] MEDS: pantoprazole DR 40 mg Tablet PO (08:33)
[2020-09-28] MEDS: apixaban 5 mg Tablet PO (08:34)
--- NOTE | 2020-09-28 10:28 | P.DS_ITS ---
Discharge Providers Date of Admission: 09/27/20 13:15 Date of Discharge: September 28, 2020 Attending Provider at Admission: Mason Ly MD Attending Provider at Discharge: Andrew Edwards MD Primary Care Provider: Randolph Solares MD Diagnoses at Discharge Discharge Diagnosis (1) Atrial flutter: Status: Acute (2) Narrow complex tachycardia: Status: Acute (3) Dyslipidemia: Status: Acute (4) Essential hypertension: Status: Acute (5) Aortic insufficiency: Status: Acute (6) Mitral regurgitation: Status: Acute Reason for Visit Reason for Visit: AFIB W RVR Hospital Course Hospital Course This is a 80-year-old female with a past medical history of diabetes mellitus, hypertension, hyperlipidemia, GERD, hypothyroidism, aortic insufficiency, who presents to [facility] due to complaints of palpitations Patient was admitted to [facility] due to atrial flutter, admitted to the [facility] started on a Cardizem drip, Eliquis, cardiology was consulted. Eventually Cardizem drip was weaned off, transition to p.o. Cardizem, and metoprolol. Patient remained in atrial flutter, heart rates were well controlled, ambulating with minimal tachycardia, minimal tachycardia during the night. Patient will be discharged on metoprolol 50 twice daily, Cardizem 120 twice daily, Eliquis 5 mg twice daily. Patient is to follow-up with Dr. Means in 1 week, for consideration of SANTHOSH and cardioversion. Patient was advised to monitor for bloody or black stools, or weakness, lightheadedness if so come to the emergency room. Follow with Dr. Solares this week for a repeat CBC. Patient was advised that if she were to have recurrent chest pain, palpitations come back to emergency room. In addition we have discharged her on Cardizem and metoprolol, she should monitor heart rates and her blood pressure, if her heart rates less than 60 and her blood pressures are low or if she feels lightheaded or dizzy come to the emergency room. Physical Exam Const: COMMON NORMALS: no acute distress and patient oriented x3 HENMT: COMMON NORMALS: normocephalic HEAD & SCALP: normocephalic Neck/C-Spine: COMMON NORMALS: no JVD Resp: COMMON NORMALS: normal respiratory effort, No retractions, No use of accessory muscles and clear to auscultation bilaterally AUSCULTATION: clear to auscultation bilaterally Cardio: COMMON NORMALS: no JVD, regular rate, S1 normal heart sound present and S2 normal heart sound present RATE: regular rate RHYTHM: abnormal rhythm HEART SOUNDS: S1 normal heart sound present and S2 normal heart sound present GI: COMMON NORMALS: Normal to inspection, nondistended, normoactive bowel sounds present, Soft to palpation, non-tender, No hepatosplenomegaly present, no masses and no bruits PALPATION: Yes Soft to palpation and Yes No hepatosplenomegaly present Extremity: COMMON NORMALS: capillary refill normal, no clubbing, cyanosis or edema, no calf tenderness and no pedal edema Neuro: COMMON NORMALS: patient oriented x3 Psych: COMMON NORMALS: mental status grossly normal Discharge Data Data Completed and Pending: Completed Studies During Hospitalization Category Date Time Status XR chest 1V marvel ble [id number] Stat Exams 09/26/20 06:33 Completed CV echo complete* [id number] Routine Ultrasound 09/26/20 11:19 Completed Labs from last 24 hours 09/28/20 09/28/20 09/28/20 07:25 03:28 03:28 WBC 9.0 RBC 5.02 Hgb 16.0 H Hct 48.6 H MCV 96.8 MCH 31.9 MCHC 32.9 RDW 12.4 Plt Count 197 MPV 11.0 H Neut % (Auto) 56.8 Lymph % (Auto) 28.2 [place] % (Auto) 11.2 Eos % (Auto) 2.8 Baso % (Auto) 0.6 Neut # (Auto) 5.14 Lymph # (Auto) 2.6 [place] # (Auto) 1.0 H Eos # (Auto) 0.3 Baso # (Auto) 0.1 Nucleated RBC % (a uto) 0 Nucleated RBCs # 0.0 Sodium 139 Potassium 4.0 Chloride 102 Carbon Dioxide 26 Anion Gap 15.0 BUN 20 Creatinine 0.6 GFR Calculation Not Reportable Glucose 132 H POC Glucose 132 H Calculated Osmolal ity 292 Calcium 9.3 09/27/20 20:18 WBC RBC Hgb Hct MCV MCH MCHC RDW Plt Count MPV Neut % (Auto) Lymph % (Auto) [place] % (Auto) Eos % (Auto) Baso % (Auto) Neut # (Auto) Lymph # (Auto) [place] # (Auto) Eos # (Auto) Baso # (Auto) Nucleated RBC % (a uto) Nucleated RBCs # Sodium Potassium Chloride Carbon Dioxide Anion Gap BUN Creatinine GFR Calculation Glucose POC Glucose 125 H Calculated Osmolal ity Calcium Vitals: Last Vital Signs Temp 97.6 F 09/28/20 07:24 Pulse 78 09/28/20 07:24 Resp 16 09/28/20 07:24 BP 122/67 09/28/20 07:24 Pulse Ox 97 09/28/20 07:24 Discharge Plan Discharge Patient Disposition: Home Condition: Stable Prescriptions: New metoprolol tartrate 50 mg Tablet 50 mg PO BID@0900,2100 30 Days Qty: 60 RF: 0 Eliquis 5 mg Tablet 5 mg PO BID 30 Days Qty: 60 RF: 0 Cardizem LA 120 mg tablet extended release 24 hr 120 mg PO Q12H 30 Days Qty: 60 RF: 0 pantoprazole 40 mg Tablet,Delayed Release (Dr/Ec) 40 mg PO DAILY 30 Days Qty: 30 RF: 0 Continued pravastatin 40 mg tablet 40 mg PO DAILY@19 RF: 0 levothyroxine 125 mcg capsule 125 mcg PO DAILY@07 RF: 0 coenzyme Q10 100 mg capsule 100 mg PO DAILY@12 RF: 0 aspirin [Adult Aspirin Regimen] 81 mg tablet,delayed release (DR/EC) 81 mg PO DAILY@19 RF: 0 omega-3 fatty acids 500 mg capsule 1,000 mg PO DAILY@12 RF: 0 Vitamin D3 25 mcg (1,000 unit) Tablet 1,000 - 5,000 unit PO DAILY@12 RF: 0 chlorthalidone 25 mg tablet 25 mg PO DAILY@07 RF: 0 Vitamin B-12 100 mcg Tablet 100 mcg PO DAILY@12 RF: 0 Lew Eye Vitamin 1 tab PO EVERY OTHER DAY RF: 0 Discontinued metoprolol tartrate 25 mg tablet 25 mg PO DAILY@19 RF: 0 Discharge Orders: Discharge Order (Routine); Ordered 09/28/20 Ordered By: Andrew Edwards Referrals: Enmanuel Means M.D [Physician] - 1 week Discharge Diet: Regular and Cardiac Discharge Activity: Resume usual activity Activity Restrictions/Additional Instructions: -I have discharged on Eliquis 5 mg twice daily, which is a blood thinner, if you have bloody or black stools, bloody cough, blood in your urine go to the emergency room -Follow-up with Dr. Solares this week for repeat CBC, check your hemoglobin -Follow-up with Dr. Means in 1 week -If you have recurrent chest pain, shortness of breath come back to emergency room -For heart rate control I have discharged on metoprolol 50 twice daily, with Cardizem 120 p.o. every 12 hours -If you feel lightheaded, dizzy or have low blood pressures low or heart rate come back to emergency room Discharge Attestations Time Spent in Discharge Care*: greater than 30 min Quality Metrics Clinical Quality Measures During this hospital stay, did patient experience: None Coding Level of Care Code Acute Floor Person for g Fwd Diagnoses Atrial flutter I48.92 Narrow complex tachycardia I47.1 Dyslipidemia E78.5 Essential hypertension I10 Aortic insufficiency I35.1 Mitral regurgitation I34.0
[2020-09-28 11:11] VITALS: BP 107/57; PULSE 79; PULSE 80; RESP 18; RESP 20; TEMP 36.3; O2SAT 98
[2020-09-28 11:19] LABS: Glucose Point of Care 134 mg/dL (70-110)
--- NOTE | 2020-09-28 12:24 | PC.NURSE ---
Pt discharged home. IV removed no redness or swelling noted. Pts discharge instructions given along with prescriptions and follow up appointments. Pt had no c/o pain or discomfort at the time of discharge. Pt transferred out via wheelchair accompanied by staff.
== END 2020-09-28 12:23 | disposition home or self-care (01) | DRG 310 ==
LOC: ER 09:23 → CSU 14:06
PROVIDERS: Admitting Provider Internal Medicine; Emergency Provider Family Medicine; PCP Family Medicine; Visit Provider Family Medicine
DX: I48.92 Unspecified atrial flutter (principal); I10 Essential (primary) hypertension; I34.0 Nonrheumatic mitral (valve) insufficiency; E78.5 Hyperlipidemia, unspecified; R00.0 Tachycardia, unspecified; I35.1 Nonrheumatic aortic (valve) insufficiency; E11.9 Type 2 diabetes mellitus without complications; K21.9 Gastro-esophageal reflux disease without esophagitis; E03.9 Hypothyroidism, unspecified; Z79.82 Long term (current) use of aspirin
CPT/HCPCS: 12345; 36415; 36416; 71045; 80048; 80053; 81001; 82962; 83735; 84443; 84484; 85025; 93005; 93306; 96372; 99283; G0378; J1650; J3490

== ENCOUNTER → 2020-12-02 10:43 | Outpatient (BNVA) | payer MEDICARE, OTHER, SELFPAY | PROVIDERS: PCP Family Medicine; Visit Provider Internal Medicine | DX: Z01.812 Encounter for preprocedural laboratory examination (principal); Z20.822 Contact with and (suspected) exposure to COVID-19 | CPT/HCPCS: 87635 ==

== ENCOUNTER 2020-12-06 10:50 | Day surgery (SDC) | payer MEDICARE, OTHER, SELFPAY ==
--- NOTE | 2020-11-23 13:11 | ANE.PACU2 ---
Inpatient post-anesthesia follow up: Airway intact: Yes Vital signs: Temperature Pulse Rate Respiratory Rate Blood Pressure Pulse Oximetry Oxygen Delivery Me thod Oxygen Flow Rate Fraction of Inspir ed Oxygen Hydration adequate: Yes Nausea and vomiting: No Pain level: 1 Mental status: Baseline
--- NOTE | 2020-12-06 | USCV_ITS ---
Pooja Bernabe Age: 80 Gender: F : 1940 Exam Date: 12/06/2020 12:27 Ordering Phys: Enmanuel Means M.D ([email or web address]) Technologist: Johan Degroot [place] [facility] [place]: AFIB BP: / HR: Rhythm: Sinus Technical Quality: MEASUREMENTS (Male / Female) Normal Values Medications Patient given IV sedation by anesthesia service, for details please refer to the anesthesia report. Complications None. Proc. Components SANTHOSH was performed at multiple levels. FINDINGS Left Ventricle LV systolic function is normal Right Ventricle Grossly normal Right Atrium Left Atrium Left atrium is enlarged LA Appendage LA appendage does not have evidence of thrombus IA Septum Mitral Valve Mitral valve is structurally normal. It has mild regurgitation noted Aortic Valve Aortic valve is tricuspid. It has mild aortic regurgitation Tricuspid Valve Tricuspid valve is grossly normal. It has mild to moderate tricuspid regurgitation Pulmonic Valve Grossly normal Pericardium Normal Aorta There is mild plaque noted in the aorta CONCLUSIONS There is no evidence of left atrial appendate thrombus Left atrium is enlarged Enmanuel Means MD (Electronically Signed) Final Date: 06 December 2020 19:33 S
[2020-12-06 11:01] VITALS: BP 122/77; PULSE 86; RESP 16; TEMP 36.8; O2SAT 92
[2020-12-06 11:21] VITALS: BMI 26.1
--- NOTE | 2020-12-06 11:23 | USCV_ITS ---
Pooja Bernabe Age: 80 Gender: F : 1940 Exam Date: 12/06/2020 12:27 Ordering Phys: Enmanuel Means M.D ([email or web address]) Technologist: Johan Degroot [place] [facility] [place]: AFIB BP: / HR: Rhythm: Sinus Technical Quality: MEASUREMENTS (Male / Female) Normal Values Medications Patient given IV sedation by anesthesia service, for details please refer to the anesthesia report. Complications None. Proc. Components SANTHOSH was performed at multiple levels. FINDINGS Left Ventricle LV systolic function is normal Right Ventricle Grossly normal Right Atrium Left Atrium Left atrium is enlarged LA Appendage LA appendage does not have evidence of thrombus IA Septum Mitral Valve Mitral valve is structurally normal. It has mild regurgitation noted Aortic Valve Aortic valve is tricuspid. It has mild aortic regurgitation Tricuspid Valve Tricuspid valve is grossly normal. It has mild to moderate tricuspid regurgitation Pulmonic Valve Grossly normal Pericardium Normal Aorta There is mild plaque noted in the aorta CONCLUSIONS There is no evidence of left atrial appendate thrombus Left atrium is enlarged Enmanuel Means MD (Electronically Signed) Final Date: 06 December 2020 19:33 S
--- NOTE | 2020-12-06 11:29 | ECG_ITS ---
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 Measurements Intervals Barnhart Rate: 76 P: FL: QRS: 2 QRSD: 80 T: 90 QT: 358 QTc: 404 Interpretive Statements ATRIAL FIBRILLATION WITH ABERRANT CONDUCTION OR VENTRICULAR PREMATURE COMPLEXES NONSPECIFIC T-WAVE ABNORMALITY ABNORMAL RHYTHM ECG Compared to ECG 09/26/2020 13:12:37 Ventricular premature complex(es) now present Aberrant conduction of supraventricular beat(s) now present T-wave abnormality now present Supraventricular rhythm no longer present Myocardial infarct finding no longer present Electronically Signed On 12-15-2020 10:59:48 CDT by Angelique Lewis M.D. [email or web address]
[2020-12-06] MEDS: sodium chloride 0.9% 1,000 ML 30 ML IV (11:41)
--- NOTE | 2020-12-06 11:45 | ANES.PREANE2 ---
Pre-Anesthetic Assessment Pre-Anesthetic Assessment: Height/Weight: Height 1.63 m Weight 68.946 kg Temp Pulse Resp BP Pulse Ox 98.2 F 86 16 122/77 92 12/06/20 11:01 12/06/20 11:01 12/06/20 11:01 12/06/20 11:01 12/06/20 11:01 Proposed Procedure: Operation Date: 11/29/20 12:00 Proposed Procedures p SANTHOSH(Not Applicable) - Sally Price Cardioversion(Not Applicable) - Enmanuel Means M.D Operation Date: 12/06/20 12:00 Proposed Procedures p SANTHOSH(Not Applicable) - Enmanuel Means M.D s Cardioversion(Not Applicable) - Enmanuel Means M.D Last intake: Intake Last Liquid Date 12/05/20 Last Liquid Time 22:30 Last Solid Date 12/05/20 Last Solid Time 22:30 Social: Social History: No alcohol and No tobacco Exam: Pre-Anes Outpt Exam: alert and oriented x 3 Airway: Submandibular: WNL Cervical ROM: WNL MP: 3 Additional comments: small mouth Pulmonary: Pulmonary: None reported CV/HEM: CV/HEM: Afib, Arrythmia and PVD Comments: leaky valves varicose veins : : None reported Hepatic: Hepatic: None reported GI: GI: GERD Comments: well controlled since weight loss Metabolic: Metabolic: DM and Thyroid Musc/skel: Musc/skel: None reported Neuropsych: Neuropsych: None reported Anesthetic Plan: ASA status: 3 Anesthesia: Anesthesia Evaluation and MAC Risk of > 500 ml blood loss (7ml/kg in children): No Meds/Allergies Current Medications: Current Medications Generic Name Dose Route Start Last Admin Trade Name Freq PRN Reason Stop Dose Admin Sodium Chloride 1,000 mls @ 30 ml s/hr 12/06/20 11:00 12/06/20 11:41 Sodium Chloride 0.9% IV 12/07/20 10:59 30 mls/hr .Q24H GIO Administration PFSH Anesthesia PFSH: Medical History Aortic insufficiency Diabetes mellitus Dyslipidemia Essential hypertension GERD (gastroesophageal reflux disease) Hypertension Hypothyroidism Mitral regurgitation Narrow complex tachycardia Tinnitus Venous stasis Surgical History History of appendectomy (~2007) [facility] History of dilatation and curettage (~1993) Family History Mother Hypercholesteremia Hypertension Stroke Social History Smoking and tobacco status: never smoked Alcohol intake: never Household members: spouse Marital status: Data Anesthesia Cardiac Studies: No Data to Display
[2020-12-06 11:52] LABS: Glucose Point of Care 140 mg/dL (70-110)
--- NOTE | 2020-12-06 12:09 | P.HP_ITS ---
Same Day Surgery H&P Indication for Procedure/HPI DATE OF PROCEDURE: December 06, 2020 CHIEF COMPLAINT/INDICATIONFOR SURGICAL PROCEDURE: Atrial fibrillation PREOP DIAGNOSIS: Atrial fibrillation PLANNED PROCEDRUE: Operation Date: 12/06/20 12:00 Proposed Procedures p SANTHOSH(Not Applicable) - Sally Price Cardioversion(Not Applicable) - Enmanuel Means M.D 80 years old woman with history of mild mitral and aortic regurgitation, hypertension, dyslipidemia was recently admitted to the hospital with atrial flutter with RVR. She was started on Eliquis 5 mg twice daily and was put on rate controlling medications. Patient was seen in the office and continued to be in afib with RVR. Plan for SANTHOSH/Cardioversion today ROS 10 point review of systems is negative except below Resp: Shortness of breath Medications/Allergies* Home Medications Medication Instructions Recorded Confirmed Type levothyroxine 125 mcg capsule 125 mcg PO DAILY@11/01/19 12/05/20 History pravastatin 40 mg tablet 40 mg PO DAILY@11/01/19 12/05/20 History [facility] Vitamin 1 tab PO EVERY OTHER DAY 09/26/20 12/05/20 History chlorthalidone 25 mg PO DAILY@09/26/20 12/05/20 History cholecalciferol (vitamin D3) 1,000 - 5,000 unit PO DAILY@09/26/20 12/05/20 History [Vitamin D3] cyanocobalamin (vitamin B-12) 100 mcg PO DAILY@09/26/20 12/05/20 History [Vitamin B-12] metoprolol tartrate 100 mg tablet 150 mg PO BID tab 11/08/20 12/05/20 History Allergies/Adverse Reactions Allergy/AdvReac Type Severity Reaction Status Date / Time No Known Allergies Allergy Verified 12/06/20 11:26 Current Medications: Generic Name Dose Route Start Last Admin Trade Name Freq PRN Reason Stop Dose Admin Sodium Chloride 1,000 mls @ 30 mls/hr 12/06/20 11:00 12/06/20 11:41 Sodium Chloride 0.9% IV 12/07/20 10:59 30 mls/hr .Q24H GIO Administration Pertinent History/Comorbid Conditions* Medical History (Updated 09/29/20 @ 00:00 by ) Aortic insufficiency Diabetes mellitus Dyslipidemia Essential hypertension GERD (gastroesophageal reflux disease) Hypertension Hypothyroidism Mitral regurgitation Narrow complex tachycardia Tinnitus Venous stasis Surgical History (Updated 09/26/20 @ 11:04 by Msaon Ly MD) History of appendectomy (~2007) [facility] History of dilatation and curettage (~1993) Family History (Updated 11/01/19 @ 10:44 by Ziggy Spicer) Hypercholesteremia Mother Hypertension Mother Stroke Mother Social History Smoking and tobacco status: never smoked Alcohol intake: never Household members: spouse Marital status: Pertinent Exam Findings alert, oriented x 3, clear to auscultation bilaterally and regular rate & rhythm Conscious Sedation Assessment PATIENT ASSESSED PRIOR TO SEDATION, WITH NO CHANGE NOTED: Yes AIRWAY EVAL/ANESTHESIA PLAN: normal airway, see other exam findings, ASA III, Risks, benefits & alternatives of sedation and/or procedure discussed and Patient agrees to continue as planned Recommendations Surgery/Procedure today (SANTHOSH/ Cardioversion) Coding Level of Care Code Acute [employer] 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
--- NOTE | 2020-12-06 12:30 | ECG_ITS ---
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1940 Requested By: Enmanuel Means Order Number: [id number] Reading MD: MAHAD MICHAUD Measurements Intervals [place] Rate: 65 P: 66 [place]: 203 QRS: -13 QRSD: 81 T: 71 QT: 394 QTc: 410 Interpretive Statements SINUS RHYTHM POSSIBLE ANTERIOR MYOCARDIAL INFARCTION [30 ms Q WAVE IN V3/V4, OR R < 0.2 mV IN V4], OF INDETERMINATE AGE Compared to ECG 12/06/2020 11:39:10 Myocardial infarct finding now present Atrial fibrillation no longer present Ventricular premature complex(es) no longer present Aberrant conduction of supraventricular beat(s) no longer present T-wave abnormality no longer present Electronically Signed On 12-06-2020 20:17:29 CDT by MAHAD MICHAUD [id number]
[2020-12-06 12:54] VITALS: BP 101/70; PULSE 66; RESP 24; TEMP 36.1; O2SAT 92
[2020-12-06 13:16] VITALS: BP 119/63; PULSE 61; RESP 20; O2SAT 99
--- NOTE | 2020-12-06 16:00 | ANE.PACU2 ---
Inpatient post-anesthesia follow up: Airway intact: Yes Vital signs: Temperature 97 F Pulse Rate 61 Respiratory Rate 20 Blood Pressure 119/63 Pulse Oximetry 99 Oxygen Delivery Me thod Room Air Oxygen Flow Rate Fraction of Inspir ed Oxygen Hydration adequate: Yes Nausea and vomiting: No Pain level: 1 Mental status: Baseline
--- NOTE | 2020-12-06 18:44 | PM.PROC ---
Procedure Note: Date of procedure: 12/06/20 Pre-procedure diagnosis: Atrial fibrillation Post-procedure diagnosis: same Procedure: SANTHOSH Guided cardioversion Op report anesthesia: MAC (Patient given Propofol and Versed by anesthesia) Performing Provider: Enmanuel Means Estimated blood loss (mL): 0 Complications: None Condition: stable Disposition: same day (Same day discharge) Other Information: Confirmed presence of atrial fibrillation on EKG. informed consent was obtained from the patient describing risks and benefits of the procedure. Sedation was administered by anesthesia. Initially be performed transesophageal echocardiogram to rule out left atrial appendage/left atrial thrombus. After ruling it out, we performed synchronized DCCV with 200 J. This was successful and patient converted to normal sinus rhythm. Patient recovered from the procedure and anesthesia and was discharged home in a stable condition. 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
== END 2020-12-06 13:36 | disposition home or self-care (01) ==
PROVIDERS: PCP Family Medicine; Visit Provider Internal Medicine
PROC: (CPT 93312; principal; 2020-12-06 12:00)
PROC: 5A2204Z Restoration of Cardiac Rhythm, Single (ICD-10-PCS; 2020-12-06 12:00)
DX: I48.91 Unspecified atrial fibrillation (principal); I10 Essential (primary) hypertension; E78.5 Hyperlipidemia, unspecified; E11.9 Type 2 diabetes mellitus without complications; K21.9 Gastro-esophageal reflux disease without esophagitis; Z82.49 Family history of ischemic heart disease and other diseases of the circulatory system
CPT/HCPCS: 36416; 82962; 92960; 93005; 93312; 93320; 93325; 96360; 96361; J2704; J3490; J7030

== ENCOUNTER 2021-03-07 13:07 | Outpatient (CLI) | payer MEDICARE, OTHER, SELFPAY ==
--- NOTE | 2021-03-07 13:19 | USCV_ITS ---
SrinivasaPooja Age: 80 Gender: F : 1940 Exam Date: 03/07/2021 13:35 Ordering Phys: Esperanza Zapata Technologist: Isabel Guerrero [place] [facility] [place]: RLE SWELLING HISTORY: Patient is on eloquist. RLE swelling PROCEDURES: On the right side, the common femoral, superficial femoral, profunda femoral, popliteal, posterior tibial, greater saphenous veins and the peroneal trunk were identified and interrogated in the standard fashion. These veins were found to be easily compressible with spontaneous blood flow. FINDINGS: Normal 2-D Doppler and augmentation and compressibility throughout the lower extremity venous structures. Additional imaging through the proximal calf veins also reveals no thrombus. Limited evaluation of the greater saphenous vein is patent with no thrombus. A small varicosity is seen in the right lateral calf area, c/o pain in that area. CONCLUSIONS No DVT right lower extremity. There is subcutaneous right lower extremity edema noted. Dr. Vianney Sandhu DO (Electronically Signed) Final Date: 07 March 2021 14:21 S
== END 2021-03-07 13:08 | disposition home or self-care (01) ==
PROVIDERS: PCP Family Medicine; Visit Provider Nurse Practitioner Family
DX: R60.0 Localized edema (principal); I48.91 Unspecified atrial fibrillation; M79.89 Other specified soft tissue disorders
CPT/HCPCS: 93971

== ENCOUNTER → 2021-12-18 14:40 | Outpatient (BNVA) | payer MEDICARE, OTHER, SELFPAY | PROVIDERS: PCP Family Medicine; Visit Provider Internal Medicine | DX: I48.92 Unspecified atrial flutter (principal); E78.5 Hyperlipidemia, unspecified; I10 Essential (primary) hypertension; I35.1 Nonrheumatic aortic (valve) insufficiency; I34.0 Nonrheumatic mitral (valve) insufficiency; Z79.01 Long term (current) use of anticoagulants | CPT/HCPCS: 99213; 99214 ==

== ENCOUNTER 2022-04-17 10:01 | Outpatient (CLI) | payer MEDICARE, OTHER, SELFPAY ==
--- NOTE | 2022-04-17 10:15 | USCV_ITS ---
Pooja Bernabe Age: 81 Gender: F : 1940 Exam Date: 04/17/2022 10:32 Ordering Phys: Randolph Solares MD Technologist: Isabel Guerrero [place] [facility] [place]: AI, moderate BP: 118 / 68 HR: 114 Rhythm: Sinus Technical Quality: Adequate MEASUREMENTS (Male / Female) Normal Values 2D ECHO LV Diastolic Diameter PLAX 4.1 cm 4.2 - 5.9 / 3.9 - 5.3 cm LV Systolic Diameter PLAX 3.3 cm IVS Diastolic Thickness 1.1 cm 0.6 - 1.0 / 0.6 - 0.9 cm IVS Systolic Thickness 1.3 cm LVPW Diastolic Thickness 1.1 cm 0.6 - 1.0 / 0.6 - 0.9 cm LVPW Systolic Thickness 1.5 cm LVOT Diameter 2.0 cm LV Ejection Fraction 2D Teich 39.6 % LV Ejection Fraction MOD 2C 30.9 % LV Ejection Fraction 2C AL 31.2 % LA Diameter 3.6 cm LA Width 2.2 cm LA Height 4.9 cm RA Width 4.4 cm RA Height 5.1 cm Aorta at Sinotubular Diameter 2.6 cm IVC Diameter 2.2 cm M-MODE MV E Point Septal Separation 0.9 cm DOPPLER AV Peak Velocity 146.0 cm/s LVOT Peak Velocity 55.0 cm/s AV Area Cont Eq vti 1.1 cm squared AV Area Cont Eq pk 1.2 cm squared MV Peak Velocity 119.0 cm/s MV Area PHT 4.8 cm squared Mitral E to A Ratio 6.0 MV E' Velocity 58.5 cm/s Mitral E to MV E' Ratio 7.7 Mitral E to LV E' Lateral Ratio 7.4 Mitral E to LV E' Septal Ratio 8.2 TR Peak Velocity 228.3 cm/s TR Peak Gradient 20.8 mmHg Right Atrial Pressure 8.0 mmHg Pulmonary Artery Systolic Pressu 28.8 mmHg PV Peak Velocity 59.0 cm/s RV Acceleration Time 0.1 s RV Ejection Time 0.3 s RV AcT/ET 0.4 FINDINGS Left Ventricle Technically limited quality echocardiogram because of poor ultrasonic windows. Left ventricle is normal size. Grossly LV systolic function is moderately reduced. Regional wall motion abnormalities are difficult to assess because of poor windows. Right Ventricle Normal in size and function Right Atrium Normal in size Left Atrium Normal in size Mitral Valve Structurally normal valve. Mild to moderate mitral regurgitation Aortic Valve Aortic valve is thickened. No significant stenosis. Mild aortic regurgitation. Tricuspid Valve Moderate to severe tricuspid regurgitation. Pulmonary artery systolic pressure is normal. Pulmonic Valve Not well-visualized Pericardium Normal Aorta Normal in size IVC CONCLUSIONS Technically very limited quality echocardiogram because of poor ultrasonic windows. Grossly LV systolic function is moderately reduced Mild to moderate mitral regurgitation. Mild aortic regurgitation. Moderate to severe tricuspid regurgitation. Compared to prior echocardiogram from 09/26/2020 patient's LV systolic function appears to have decreased and has moderate to severe tricuspid regurgitation now. However for accurate assessment of LV function, will recommend a limited echo with contrast. Enmanuel Means MD (Electronically Signed) Final Date: 28 April 2022 17:32 S
== END 2022-04-17 10:02 | disposition home or self-care (01) ==
LOC: RAD 10:02
PROVIDERS: PCP Family Medicine; Visit Provider Family Medicine
DX: I08.3 Combined rheumatic disorders of mitral, aortic and tricuspid valves (principal)
CPT/HCPCS: 93306

== ENCOUNTER → 2022-05-07 09:55 | Outpatient (BNVA) | payer MEDICARE, OTHER, SELFPAY | PROVIDERS: PCP Family Medicine; Visit Provider Family Medicine | DX: I34.0 Nonrheumatic mitral (valve) insufficiency (principal); I50.9 Heart failure, unspecified; I48.92 Unspecified atrial flutter; E11.9 Type 2 diabetes mellitus without complications; I10 Essential (primary) hypertension | CPT/HCPCS: 80048; 83880 ==

== ENCOUNTER → 2022-05-12 12:04 | Outpatient (BNVA) | payer MEDICARE, OTHER, SELFPAY | PROVIDERS: PCP Family Medicine; Visit Provider Internal Medicine | DX: I35.1 Nonrheumatic aortic (valve) insufficiency (principal); I34.0 Nonrheumatic mitral (valve) insufficiency; I48.92 Unspecified atrial flutter; E78.5 Hyperlipidemia, unspecified; Z79.01 Long term (current) use of anticoagulants; I11.0 Hypertensive heart disease with heart failure; I50.9 Heart failure, unspecified | CPT/HCPCS: 99214 ==

== ENCOUNTER → 2022-06-17 09:43 | Outpatient (BNVA) | payer MEDICARE, OTHER, SELFPAY | PROVIDERS: PCP Family Medicine; Visit Provider Family Medicine | DX: I50.9 Heart failure, unspecified (principal); I48.92 Unspecified atrial flutter; I10 Essential (primary) hypertension; Z00.00 Encounter for general adult medical examination without abnormal findings | CPT/HCPCS: 80048; 83880; 85025 ==

== ENCOUNTER 2022-07-10 11:27 | Outpatient (CLI) | payer MEDICARE, OTHER, SELFPAY ==
--- NOTE | 2022-07-10 12:00 | USCV_ITS ---
Pooja Bernabe Age: 81 Gender: F : 1940 Exam Date: 07/10/2022 12:21 Ordering Phys: Enmanuel Means M.D ([email or web address]) Technologist: Isabel Guerrero Exam Location: [facility] – [place] Indication: CHF BP: 112 / 64 HR: 70 Rhythm: Sinus Technical Quality: Good MEASUREMENTS (Male / Female) Normal Values 2D ECHO LV Diastolic Diameter PLAX 4.7 cm 4.2 - 5.9 / 3.9 - 5.3 cm LV Systolic Diameter PLAX 3.4 cm IVS Diastolic Thickness 0.9 cm 0.6 - 1.0 / 0.6 - 0.9 cm IVS Systolic Thickness 1.2 cm LVPW Diastolic Thickness 0.9 cm 0.6 - 1.0 / 0.6 - 0.9 cm LVPW Systolic Thickness 1.5 cm LVOT Diameter 2.0 cm LV Ejection Fraction 2D Teich 56.9 % LV Ejection Fraction MOD 2C 53.2 % LV Ejection Fraction 2C AL 54.3 % LA Diameter 3.5 cm LA Width 2.7 cm LA Height 5.0 cm RA Width 4.2 cm RA Height 5.7 cm Aorta at Sinotubular Diameter 2.7 cm DOPPLER MV E' Velocity 14.0 cm/s FINDINGS Left Ventricle Right Ventricle Right Atrium Left Atrium Mitral Valve Aortic Valve Tricuspid Valve Pulmonic Valve Pericardium Aorta IVC CONCLUSIONS This is limited quality echocardiogram because of poor ultrasonic windows. LV systolic function is borderline normal with EF 50 to 55%. Accurate comparison with prior echocardiogram can not be done because of no use of contrast agent on prior study. Enmanuel Means MD (Electronically Signed) Final Date: 19 July 2022 19:54 S
[2022-07-10] MEDS: perflutren protein-a microsphr 0.22 mg/mL SDV 3 mL IV (14:23)
== END 2022-07-10 11:28 | disposition home or self-care (01) ==
LOC: RAD 11:30
PROVIDERS: PCP Family Medicine; Visit Provider Internal Medicine
DX: I50.9 Heart failure, unspecified (principal)
CPT/HCPCS: C8924; Q9956

== ENCOUNTER → 2022-08-18 12:27 | Outpatient (BNVA) | payer MEDICARE, OTHER, SELFPAY | PROVIDERS: PCP Family Medicine; Visit Provider Family Medicine | DX: N39.0 Urinary tract infection, site not specified (principal) | CPT/HCPCS: 81000 ==

== ENCOUNTER → 2022-09-01 13:39 | Outpatient (BNVA) | payer MEDICARE, OTHER, SELFPAY | PROVIDERS: PCP Family Medicine; Visit Provider Family Medicine | DX: I50.9 Heart failure, unspecified (principal); E11.9 Type 2 diabetes mellitus without complications; I48.92 Unspecified atrial flutter | CPT/HCPCS: 80053; 83036 ==

== ENCOUNTER → 2022-09-17 12:43 | Outpatient (BNVA) | payer MEDICARE, OTHER, SELFPAY | PROVIDERS: PCP Family Medicine; Visit Provider Internal Medicine | DX: I48.92 Unspecified atrial flutter (principal); E78.5 Hyperlipidemia, unspecified; I35.1 Nonrheumatic aortic (valve) insufficiency; I34.0 Nonrheumatic mitral (valve) insufficiency; Z79.01 Long term (current) use of anticoagulants; I11.0 Hypertensive heart disease with heart failure; I50.9 Heart failure, unspecified | CPT/HCPCS: 99214 ==

== ENCOUNTER → 2023-01-13 08:31 | Outpatient (BNVA) | payer MEDICARE, OTHER, SELFPAY | PROVIDERS: PCP Family Medicine; Visit Provider Family Medicine | DX: I50.32 Chronic diastolic (congestive) heart failure (principal); E11.9 Type 2 diabetes mellitus without complications | CPT/HCPCS: 80053; 80061; 83036; 83880; 84443; 85025 ==

== ENCOUNTER → 2023-04-20 12:41 | Outpatient (BNVA) | payer MEDICARE, OTHER, SELFPAY | PROVIDERS: PCP Family Medicine; Visit Provider Internal Medicine | DX: I48.3 Typical atrial flutter (principal); E78.5 Hyperlipidemia, unspecified; I10 Essential (primary) hypertension; I35.1 Nonrheumatic aortic (valve) insufficiency; I34.0 Nonrheumatic mitral (valve) insufficiency; Z79.01 Long term (current) use of anticoagulants | CPT/HCPCS: 99214 ==

== ENCOUNTER → 2023-06-21 13:20 | Outpatient (BNVA) | payer MEDICARE, OTHER, SELFPAY | PROVIDERS: PCP Family Medicine; Visit Provider Podiatrist Foot & Ankle Surgery | DX: I73.9 Peripheral vascular disease, unspecified (principal); B35.1 Tinea unguium | CPT/HCPCS: 11721; 99203 ==

== ENCOUNTER → 2023-07-13 08:58 | Outpatient (BNVA) | payer MEDICARE, OTHER, SELFPAY | PROVIDERS: PCP Family Medicine; Visit Provider Family Medicine | DX: E11.9 Type 2 diabetes mellitus without complications (principal); I10 Essential (primary) hypertension; I34.0 Nonrheumatic mitral (valve) insufficiency; I50.9 Heart failure, unspecified; E78.5 Hyperlipidemia, unspecified | CPT/HCPCS: 80053; 80061; 83036; 84443; 85025 ==

== ENCOUNTER → 2023-09-13 10:48 | Outpatient (BNVA) | payer MEDICARE, OTHER, SELFPAY | PROVIDERS: PCP Family Medicine; Visit Provider Podiatrist Foot & Ankle Surgery | DX: B35.1 Tinea unguium (principal); E11.9 Type 2 diabetes mellitus without complications; I73.9 Peripheral vascular disease, unspecified; L84 Corns and callosities | CPT/HCPCS: 11055; 11721 ==

== ENCOUNTER 2023-09-29 08:33 | Outpatient (CLI) | payer MEDICARE, OTHER, SELFPAY ==
--- NOTE | 2023-09-29 09:00 | USCV_ITS ---
Pooja Bernabe Age: 83 Gender: F : 1940 Exam Date: 09/29/2023 09:18 Ordering Phys: Enmanuel Means M.D ([email or web address]) Technologist: CT Exam Location: [facility] [place] Indication: tr BP: 112 / 68 HR: 71 Rhythm: Atrial fibrillation Technical Quality: Adequate MEASUREMENTS (Male / Female) Normal Values 2D ECHO LV Chamber Size 4.4 cm RV Chamber Size 4.7 cm LVOT Diameter 2.0 cm LV Ejection Fraction MOD 2C 55.9 % LV Ejection Fraction 2C AL 56.5 % LA Diameter 4.3 cm LA Width 4.7 cm LA Height 6.2 cm RA Width 5.1 cm RA Height 6.2 cm Aorta at Sinotubular Diameter 2.0 cm IVC Diameter 1.7 cm M-MODE Aortic Annulus Diameter 3.0 cm LA Ao Ratio MM 1.5 MV E Point Septal Separation 1.4 cm DOPPLER AV Peak Velocity 167.0 cm/s LVOT Peak Velocity 93.0 cm/s AV Area Cont Eq vti 2.0 cm squared AV Area Cont Eq pk 1.8 cm squared TR Peak Velocity 332.4 cm/s TR Peak Gradient 44.2 mmHg TR Mean Velocity 262.3 cm/s TR Mean Gradient 29.5 mmHg TR Velocity Time Integral 100.5 cm TV Peak E Velocity 109.0 cm/s Right Atrial Pressure 3.0 mmHg Pulmonary Artery Systolic Pressu 47.2 mmHg PV Peak Velocity 79.0 cm/s FINDINGS Left Ventricle Left ventricle is normal in size. LV systolic function is borderline normal with EF of 50 to 55%. No regional wall motion abnormalities are seen. Right Ventricle Normal in size and function Right Atrium Dilated Left Atrium Dilated Mitral Valve Structurally normal mitral valve. Moderate mitral regurgitation. Aortic Valve Aortic valve is thickened. Mild to moderate aortic regurgitation. Tricuspid Valve Moderate to severe tricuspid regurgitation. RVSP is 45 to 50 mmHg. This is consistent with moderate pulmonary hypertension. Pulmonic Valve Mild to moderate pulmonic regurgitation Pericardium Normal Aorta Normal in size IVC Appears to be normal CONCLUSIONS LV systolic function is borderline normal with EF of 50 to 55%. Biatrial enlargement Moderate mitral regurgitation Mild to moderate aortic regurgitation Moderate to severe tricuspid regurgitation Moderate pulmonary hypertension Moderate pulmonic regurgitation Compared to prior echocardiogram from 2022, LV systolic function appears improved. Mild to moderate pulmonic regurgitation was also seen. Enmanuel Means MD (Electronically Signed) Final Date: 01 October 2023 18:28 S
== END 2023-09-29 08:34 | disposition home or self-care (01) ==
LOC: RAD 08:33
PROVIDERS: PCP Family Medicine; Visit Provider Internal Medicine
DX: I08.8 Other rheumatic multiple valve diseases (principal); I48.91 Unspecified atrial fibrillation; I27.20 Pulmonary hypertension, unspecified
CPT/HCPCS: 93306

== ENCOUNTER → 2023-10-26 12:47 | Outpatient (BNVA) | payer MEDICARE, OTHER, SELFPAY | PROVIDERS: PCP Family Medicine; Visit Provider Internal Medicine | DX: I48.3 Typical atrial flutter (principal); E78.5 Hyperlipidemia, unspecified; I08.0 Rheumatic disorders of both mitral and aortic valves; I11.0 Hypertensive heart disease with heart failure; I50.9 Heart failure, unspecified | CPT/HCPCS: 99214 ==

== ENCOUNTER → 2023-11-22 10:36 | Outpatient (BNVA) | payer MEDICARE, OTHER, SELFPAY | PROVIDERS: PCP Family Medicine; Visit Provider Podiatrist Foot & Ankle Surgery | DX: B35.1 Tinea unguium (principal); I73.9 Peripheral vascular disease, unspecified; L84 Corns and callosities; E11.69 Type 2 diabetes mellitus with other specified complication | CPT/HCPCS: 11055; 11721 ==

== ENCOUNTER → 2023-12-02 12:24 | Outpatient (BNVA) | payer MEDICARE, OTHER, SELFPAY | PROVIDERS: PCP Family Medicine; Visit Provider Family Medicine | DX: L03.90 Cellulitis, unspecified (principal); M79.605 Pain in left leg | CPT/HCPCS: 85025; 85379; 86140 ==

== ENCOUNTER → 2024-01-04 10:33 | Outpatient (BNVA) | payer MEDICARE, OTHER, SELFPAY | PROVIDERS: PCP Family Medicine; Visit Provider Family Medicine | DX: E11.9 Type 2 diabetes mellitus without complications (principal); I10 Essential (primary) hypertension; I50.32 Chronic diastolic (congestive) heart failure | CPT/HCPCS: 80053; 83036; 84443 ==

== ENCOUNTER → 2024-01-25 10:42 | Outpatient (BNVA) | payer MEDICARE, SELFPAY | PROVIDERS: PCP Family Medicine; Visit Provider Podiatrist Foot & Ankle Surgery | DX: B35.1 Tinea unguium (principal); E11.9 Type 2 diabetes mellitus without complications; I73.9 Peripheral vascular disease, unspecified; L84 Corns and callosities | CPT/HCPCS: 11056; 11721 ==

== ENCOUNTER → 2024-03-31 09:35 | Outpatient (BNVA) | payer MEDICARE, OTHER, SELFPAY | PROVIDERS: PCP Family Medicine; Visit Provider Podiatrist Foot & Ankle Surgery | DX: B35.1 Tinea unguium (principal); I73.9 Peripheral vascular disease, unspecified; L84 Corns and callosities; E11.69 Type 2 diabetes mellitus with other specified complication | CPT/HCPCS: 11721 ==

== ENCOUNTER → 2024-04-25 14:44 | Outpatient (BNVA) | payer MEDICARE, OTHER, SELFPAY | PROVIDERS: PCP Family Medicine; Visit Provider Internal Medicine | DX: I48.3 Typical atrial flutter (principal); I34.0 Nonrheumatic mitral (valve) insufficiency; E78.5 Hyperlipidemia, unspecified; I35.1 Nonrheumatic aortic (valve) insufficiency; I11.0 Hypertensive heart disease with heart failure; I50.32 Chronic diastolic (congestive) heart failure; Z79.01 Long term (current) use of anticoagulants | CPT/HCPCS: 36415; 80048; 83880; 99214 ==

== ENCOUNTER 2024-05-22 14:46 | Outpatient (CLI) | payer MEDICARE, OTHER, SELFPAY ==
[2024-05-22 15:28] LABS: Anion Gap 13.4 (5-19); Blood Urea Nitrogen 44 mg/dL (8-23); Calcium 9.8 mg/dL (8.5-10.5); Carbon Dioxide 34 mmol/L (22-29); Chloride 94 mmol/L (98-107); Glucose 140 mg/dL (65-115); NT Pro B Type Natriuretic Pept 1675 pg/mL (0-450); Osmolality Calculated 299 mOsm/kg (285-295); Potassium 3.4 mmol/L (3.5-5.1); Sodium 138 mmol/L (136-145)
== END 2024-05-22 14:47 | disposition home or self-care (01) ==
LOC: LAB 14:47
PROVIDERS: PCP Family Medicine; Visit Provider Internal Medicine
DX: I50.32 Chronic diastolic (congestive) heart failure (principal); I48.3 Typical atrial flutter; I10 Essential (primary) hypertension; I34.0 Nonrheumatic mitral (valve) insufficiency
CPT/HCPCS: 36415; 80048; 83880

== ENCOUNTER 2024-05-26 14:04 | Outpatient (CLI) | payer MEDICARE, OTHER, SELFPAY ==
--- NOTE | 2024-05-26 14:15 | USCV_ITS ---
Pooja Bernabe Age: 83 Gender: F : 1940 Exam Date: 05/26/2024 14:41 Ordering Phys: Enmanuel Means M.D ([email or web address]) Technologist: ASHIA [place] [facility] [place]ication: MR AND TR BP: 100 / 60 HR: 67 Rhythm: Atrial fibrillation Technical Quality: Adequate MEASUREMENTS (Male / Female) Normal Values 2D ECHO LV Diastolic Diameter PLAX 4.1 cm 4.2 - 5.9 / 3.9 - 5.3 cm IVS Diastolic Thickness 1.3 cm 0.6 - 1.0 / 0.6 - 0.9 cm IVS Systolic Thickness 1.8 cm LVPW Diastolic Thickness 1.6 cm 0.6 - 1.0 / 0.6 - 0.9 cm LVPW Systolic Thickness 2.2 cm LVOT Diameter 2.0 cm LV Ejection Fraction 2D Teich 64.5 % LV Ejection Fraction MOD 4C 45.8 % LV Ejection Fraction MOD 2C 53.2 % LV Ejection Fraction 2C AL 52.8 % LA Diameter 3.8 cm RA Systolic Volume 4C AL 51.8 ml RA Systolic Volume 4C MOD 48.1 ml LA Sys Volume AL 40.3 cm cubed LA Sys Volume Index AL 23.4 cm cubed/m squared Aorta at Sinotubular Diameter 2.0 cm IVC Diameter 1.8 cm M-MODE LA Ao Ratio MM 1.5 AV Cusp Separation MM 1.1 cm DOPPLER AV Peak Velocity 154.0 cm/s LVOT Peak Velocity 84.0 cm/s AV Area Cont Eq vti 1.7 cm squared AV Area Cont Eq pk 1.7 cm squared MV Peak Velocity 297.0 cm/s MV Area PHT 3.2 cm squared Mitral E to A Ratio 341.0 TR Peak Velocity 271.0 cm/s TR Peak Gradient 29.4 mmHg TR Mean Velocity 226.0 cm/s TR Mean Gradient 23.2 mmHg TR Velocity Time Integral 102.6 cm TV Peak E Velocity 82.0 cm/s Right Atrial Pressure 3.0 mmHg Pulmonary Artery Systolic Pressu 32.4 mmHg PV Peak Velocity 75.0 cm/s RV Ejection Time 0.3 s FINDINGS Left Ventricle Normal left ventricular cavity size. Moderately decreased left ventricular systolic function. Left ventricular ejection fraction is estimated at 40 %. Global left ventricular hypokinesis. Grade III/IV diastolic dysfunction (restrictive filling pattern), severely elevated filling pressures. Right Ventricle The right ventricle is normal in size and function. Right Atrium Severely increased right atrial size. Left Atrium Moderately increased left atrial size. Mitral Valve Thickened mitral valve. Mild mitral annular calcification. No mitral valve stenosis. Moderate mitral valve regurgitation. Aortic Valve Mild aortic valve calcification. No aortic valve stenosis. Moderate aortic valve regurgitation. Tricuspid Valve Severe tricuspid valve regurgitation. Pulmonic Valve Structurally normal pulmonic valve without significant stenosis. There is no pulmonic regurgitation. Pericardium Normal pericardium without effusion. Aorta Normal ascending aorta dimension. IVC The inferior vena cava appears normal. CONCLUSIONS Normal left ventricular cavity size. Moderately decreased left ventricular systolic function. Left ventricular ejection fraction is estimated at 40 %. Global left ventricular hypokinesis. Grade III/IV diastolic dysfunction (restrictive filling pattern), severely elevated filling pressures. Moderately increased left atrial size. Severely increased right atrial size. Thickened mitral valve. Mild mitral annular calcification. No mitral valve stenosis. Moderate mitral valve regurgitation. Mild aortic valve calcification. No aortic valve stenosis. Moderate aortic valve regurgitation. Severe tricuspid valve regurgitation. There is no pericardial effusion. Right atrial pressure is around 20 mm of mercury. Santana Brownlee MD (Electronically Signed) Final Date: 03 June 2024 12:51 S
== END 2024-05-26 14:05 | disposition home or self-care (01) ==
LOC: RAD 14:04
PROVIDERS: PCP Family Medicine; Visit Provider Internal Medicine
DX: I34.0 Nonrheumatic mitral (valve) insufficiency (principal); I50.30 Unspecified diastolic (congestive) heart failure; I50.20 Unspecified systolic (congestive) heart failure; I51.7 Cardiomegaly; I34.81 Nonrheumatic mitral (valve) annulus calcification; I35.1 Nonrheumatic aortic (valve) insufficiency
CPT/HCPCS: 93306

== ENCOUNTER → 2024-06-22 09:56 | Outpatient (BNVA) | payer MEDICARE, OTHER, SELFPAY | PROVIDERS: PCP Family Medicine; Visit Provider Podiatrist Foot & Ankle Surgery | DX: B35.1 Tinea unguium (principal); I73.9 Peripheral vascular disease, unspecified; L84 Corns and callosities; E11.69 Type 2 diabetes mellitus with other specified complication | CPT/HCPCS: 11721 ==

== ENCOUNTER 2024-08-02 15:08 | Outpatient (CLI) | payer MEDICARE, OTHER, SELFPAY ==
[2024-08-02 17:13] LABS: Anion Gap 13.3 (5-19); Blood Urea Nitrogen 39 mg/dL (8-23); Carbon Dioxide 34 mmol/L (22-29); Chloride 96 mmol/L (98-107); Glucose 155 mg/dL (65-115); NT Pro B Type Natriuretic Pept 1478 pg/mL (0-450); Osmolality Calculated 303 mOsm/kg (285-295); Potassium 3.3 mmol/L (3.5-5.1); Sodium 140 mmol/L (136-145)
== END 2024-08-02 15:09 | disposition home or self-care (01) ==
LOC: LAB 15:08
PROVIDERS: PCP Family Medicine; Visit Provider Internal Medicine
DX: I50.32 Chronic diastolic (congestive) heart failure (principal); I10 Essential (primary) hypertension; I34.0 Nonrheumatic mitral (valve) insufficiency
CPT/HCPCS: 36415; 80048; 83880

== ENCOUNTER → 2024-08-31 09:14 | Outpatient (BNVA) | payer MEDICARE, OTHER, SELFPAY | PROVIDERS: PCP Family Medicine; Visit Provider Podiatrist Foot & Ankle Surgery | DX: B35.1 Tinea unguium (principal); I73.9 Peripheral vascular disease, unspecified; L84 Corns and callosities; E11.69 Type 2 diabetes mellitus with other specified complication | CPT/HCPCS: 11721 ==

== ENCOUNTER → 2024-10-04 11:21 | Outpatient (BNVA) | payer MEDICARE, OTHER, SELFPAY | PROVIDERS: PCP Family Medicine; Visit Provider Family Medicine | DX: I10 Essential (primary) hypertension (principal); I50.32 Chronic diastolic (congestive) heart failure; E11.9 Type 2 diabetes mellitus without complications; I48.3 Typical atrial flutter | CPT/HCPCS: 80048; 83036; 85025 ==

== ENCOUNTER → 2024-10-31 09:11 | Outpatient (BNVA) | payer MEDICARE, OTHER, SELFPAY | PROVIDERS: PCP Family Medicine; Visit Provider Podiatrist Foot & Ankle Surgery | DX: E11.69 Type 2 diabetes mellitus with other specified complication (principal); B35.1 Tinea unguium; I73.9 Peripheral vascular disease, unspecified; L84 Corns and callosities | CPT/HCPCS: 11721 ==

== ENCOUNTER → 2024-11-02 14:06 | Outpatient (BNVA) | payer MEDICARE, OTHER, SELFPAY | PROVIDERS: PCP Family Medicine; Visit Provider Internal Medicine | DX: I48.3 Typical atrial flutter (principal); E78.5 Hyperlipidemia, unspecified; I08.0 Rheumatic disorders of both mitral and aortic valves; I11.0 Hypertensive heart disease with heart failure; I50.9 Heart failure, unspecified; Z79.01 Long term (current) use of anticoagulants | CPT/HCPCS: 99214 ==

== ENCOUNTER → 2025-01-02 10:06 | Outpatient (BNVA) | payer MEDICARE, OTHER, SELFPAY | PROVIDERS: PCP Family Medicine; Visit Provider Podiatrist Foot & Ankle Surgery | DX: E11.69 Type 2 diabetes mellitus with other specified complication (principal); B35.1 Tinea unguium; L84 Corns and callosities; I73.9 Peripheral vascular disease, unspecified; E11.622 Type 2 diabetes mellitus with other skin ulcer; L97.322 Non-pressure chronic ulcer of left ankle with fat layer exposed | CPT/HCPCS: 11056; 11721; 99213 ==

== ENCOUNTER → 2025-01-09 12:00 | Outpatient (BNVA) | payer MEDICARE, OTHER, SELFPAY | PROVIDERS: PCP Family Medicine; Visit Provider Family Medicine | DX: I10 Essential (primary) hypertension (principal); I50.32 Chronic diastolic (congestive) heart failure; E11.9 Type 2 diabetes mellitus without complications | CPT/HCPCS: 80048; 85025 ==

== ENCOUNTER 2025-01-31 14:35 | Emergency (ER) | payer MEDICARE, OTHER, SELFPAY ==
[2025-01-31 15:09] VITALS: BP 105/49; PULSE 64; RESP 16; TEMP 36.5; O2SAT 97
[2025-01-31 16:30] LABS: Basophils # 0.1 10^3/uL (0.0-0.1); Basophils % 0.6 %; Eosinophils # 0.3 10^3/uL (0.0-0.8); Eosinophils % 3.7 %; Hematocrit 45.3 % (36-47); Lymphocytes # 1.8 10^3/uL (0.8-4.8); Lymphocytes % 20.2 %; Mean Corpuscular HGB Conc 32.2 g/dL (30-55); Mean Corpuscular Hemoglobin 32.6 pg (27-33); Mean Corpuscular Volume 101.1 fl (85-98); Mean Platelet Volume 10.8 fL (7.4-10.4); Monocytes % 10.7 %; Neutrophils # 5.68 10^3/uL (1.8-7.7); Neutrophils % 64.3 %; Nucleated Red Blood Cells % 0 %; Platelet Count 150 10^3/cmm (157-399); Red Blood Count 4.48 10^6/uL (3.85-5.65); Red Cell Distribution Width 13.2 % (12.1-15.1); White Blood Count 8.84 10^3/uL (3.29-11.43)
[2025-01-31 17:00] LABS: Alanine Aminotransferase 17 U/L (0-33); Albumin Level 4.3 g/dL (3.5-5.2); Alkaline Phosphatase 83 U/L (35-105); Anion Gap 17.6 (5-19); Aspartate Amino Transferase 25 U/L (0-32); Blood Urea Nitrogen 49 mg/dL (8-23); Calcium 9.9 mg/dL (8.5-10.5); Carbon Dioxide 28 mmol/L (22-29); Chloride 100 mmol/L (98-107); Creatinine Clr Calc Pharmacy 41.0081; Glucose 150 mg/dL (65-115); Osmolality Calculated 310 mOsm/kg (285-295); Potassium 3.6 mmol/L (3.5-5.1); Sodium 142 mmol/L (136-145); Total Bilirubin 1.2 mg/dL (0.15-1.2); Total Protein 7.3 g/dL (6.6-8.7)
--- NOTE | 2025-01-31 17:42 | XRR_ITS ---
PROCEDURE INFORMATION: Exam: XR Right Knee Exam date and time: 01/31/2025 5:54 PM Age: 84 years old Clinical indication: Pain; Knee; Right; Additional info: Fall/injury TECHNIQUE: Imaging protocol: Radiologic exam of the right knee. Views: 3 views. COMPARISON: No relevant prior studies available. FINDINGS: Bones/joints: Subjective bony demineralization. Chondrocalcinosis noted. Moderate tricompartmental osteoarthritis. No joint effusion. No evidence of acute fracture or dislocation. There is mild thickening and heterogeneity of the patellar tendon. Soft tissues: Normal. XR/XR knee RT 3V* [id number] IMPRESSION: 1. No acute fracture. Probable contusion of the patellar tendon. 2. Moderate tricompartmental osteoarthritis with background chondrocalcinosis.
--- NOTE | 2025-01-31 17:43 | ED_ITS ---
HPI - Extremity Injury (Lower) 2 General: Chief Complaint: Extremity Injury, Lower Stated Complaint: Right leg pain Time Seen by Provider: 01/31/25 17:27 Source: patient Mode of arrival: wheelchair Limitations: no limitations History of Present Illness: Patient is a nice 84-year-old female who presents to the ED today for evaluation of right knee pain. Patient states she was walking when the knee gave out causing her to almost fall but she was able to catch herself. She has had pain in the knee since. She states she has been ambulatory with the help of crutches. She has not noticed any significant swelling to the knee. She does have chronic bilateral lower extremity swelling that she takes furosemide for. MD complaint: knee injury Onset (ago): hour(s) Injury: Right: knee Place: home Severity: moderate Relieving factors: immobilization Exacerbating factors: weight bearing, movement and palpation Associated symptoms: Reports no associated symptoms Other symptoms: none Related Data Home Medications ?Medication ?Instructions ?Recorded ?Confirmed [place] [facility] Vitamin 1 tab PO EVERY OTHER DAY 01/09/25 cholecalciferol (vitamin D3) 25 1,000 - 5,000 unit PO DAILY@12 09/26/20 01/09/25 mcg (1,000 unit) tablet (Vitamin D3) cyanocobalamin (vitamin B-12) 100 100 mcg PO DAILY@09/26/20 01/09/25 mcg tablet (Vitamin B-12) Previous Rx's ?Medication ?Instructions ?Recorded metoprolol tartrate 50 mg tablet 75 mg (1.5 x 50 mg) P O BID #270 04/25/24 tabs levothyroxine 125 mcg tablet See Rx Instructions .Rout e 06/09/24 .COMPLEX #90 tabs potassium chloride 20 mEq 20 meq PO BID #180 tabs 11/0 12/21 tablet,extended release(part/cryst) chlorthalidone 25 mg tablet 25 mg PO DAILY@07 #90 tabs 07/05/24 pravastatin 40 mg tablet See Rx Instructions .Route 1 09/04/23 .COMPLEX #90 tabs apixaban 5 mg tablet (Eliquis) 5 mg PO BID #180 tabs 0 12/29/24 furosemide 20 mg tablet 40 mg (2 x 20 mg) PO BID #27 0 tabs 01/09/25 Allergies Allergy/AdvReac Type Severity Reaction Status Date / Time No Known Allergies Allergy Verified 01/31/25 15:14 Review of Systems 2 Card: Denies: chest pain Resp: Denies: dyspnea Musc: Reports: extremity swelling (chronic-on diuretics) and joint pain (R knee); Denies: back pain, extremity pain, joint swelling, joint redness or joint warmth Neuro: Reports: difficulty walking (secondary to R knee pain); Denies: numbness in extremities or sensory changes PFSH ED 2 PFSH: Medical History Congestive heart failure Diabetes mellitus Diagnosed in 2020 and is currently diet controlled No pertinent past medical history Denies diabetes, asthma, seizures, DVT/PE PCP: Dr. Solares Atrial flutter Diagnosed in 1998 is on Eliquis for this Hypothyroidism Diagnosed at the age of 59 and controlled on medication managed by her primary care provider Dyslipidemia Diagnosed in her 50s and controlled on medication managed by primary care provider Essential hypertension Aortic insufficiency Surgical History Status post surgery She has had surgery for varicose veins-does not remember exactly when this was. Status post surgery Left knee surgery for torn ligament S/P dilation and curettage Done for heavy bleeding in bleeding in her 40s. Was told no cancer or precancer. S/P tonsillectomy As a child Cataract extraction status of left eye History of appendectomy (~2007) Laparoscopic procedure in [facility] Family History Mother Hypercholesteremia Hypertension Stroke Family/Other Stomach cancer maternal uncle Breast cancer Maternal cousin, diagnosis at age 81 Denies family history of Colon cancer Ovarian cancer Diabetes Heart disease Uterine cancer Thyroid disease Social History Smoking and tobacco/nicotine status: never used tobacco/nicotine Substance/Drug Use: never Physical Exam 2 Const: COMMON NORMALS: no acute distress, average body habitus, no limitations, healthy appearing, alert and well nourished Back/Pelvis: COMMON NORMALS: thoracic and lumbar spine normal to inspection Extremity: COMMON NORMALS: capillary refill normal, no joint enlargement and no calf tenderness NARRATIVE EXTREMITY EXAM: mild bilateral symmetrical non-pitting edema GENERAL: Yes normal exam except as noted RIGHT LOWER EXTREMITY: Yes knee joint (TTP R knee-mainly posteriorly ) Right knee: Yes inspection (normal gross inspection), Yes ROM (fairly good ROM) and Yes neurovascular exam (normal) Neuro: COMMON NORMALS: moves all extremities, no focal motor deficits and no sensory deficits noted SENSORIUM/ORIENTATION: Yes alert Course 2 Vital Signs: Vital signs: Vital Signs Temperature 97.7 F 01/31/25 15:09 Pulse Rate 64 01/31/25 15:09 Respiratory Rate 16 01/31/25 15:09 Blood Pressure 105/49 01/31/25 15:09 Pulse Oximetry 97 01/31/25 15:09 MDM - Extremity Injury (Lower) Medical Decision Making I do not visualize any fractures on patient's right knee XR she states she is ambulatory at home with the help of crutches. Recommend RICE therapy. Follow- up with primary care if not improving. Medical Records I reviewed the patient's medical records. Lab Data 01/31/25 15:58 01/31/25 15:58 Laboratory Results WBC 8.84 10^3/uL (3.29-11.43) 01/31/25 15:58 RBC 4.48 10^6/uL (3.85-5.65) 01/31/25 15:58 Hgb 14.60 g/dL (11.27-16.99) 01/31/25 15:58 Hct 45.3 % (36-47) 01/31/25 15:58 MCV 101.1 fl (85-98) H 01/31/25 15:58 MCH 32.6 pg (27-33) 01/31/25 15:58 MCHC 32.2 g/dL (30-55) 01/31/25 15:58 RDW 13.2 % (12.1-15.1) 01/31/25 15:58 Plt Count 150 10^3/cmm (157-399) L 01/31/25 15:58 MPV 10.8 fL (7.4-10.4) H 01/31/25 15:58 Neut % (Auto) 64.3 % 01/31/25 15:58 Lymph % (Auto) 20.2 % 01/31/25 15:58 [place] % (Auto) 10.7 % 01/31/25 15:58 Eos % (Auto) 3.7 % 01/31/25 15:58 Baso % (Auto) 0.6 % 01/31/25 15:58 Neut # (Auto) 5.68 10^3/uL (1.8-7.7) 01/31/25 15:58 Lymph # (Auto) 1.8 10^3/uL (0.8-4.8) 01/31/25 15:58 [place] # (Auto) 1.0 10^3/uL (0.2-0.9) H 01/31/25 15:58 Eos # (Auto) 0.3 10^3/uL (0.0-0.8) 01/31/25 15:58 Baso # (Auto) 0.1 10^3/uL (0.0-0.1) 01/31/25 15:58 Nucleated RBC % (auto) 0 % 01/31/25 15:58 Nucleated RBCs # 0.0 /100WBC 01/31/25 15:58 Sodium 142 mmol/L (136-145) 01/31/25 15:58 Potassium 3.6 mmol/L (3.5-5.1) 01/31/25 15:58 Chloride 100 mmol/L (98-107) 01/31/25 15:58 Carbon Dioxide 28 mmol/L (22-29) 01/31/25 15:58 Anion Gap 17.6 (5-19) 01/31/25 15:58 BUN 49 mg/dL (8-23) H 01/31/25 15:58 Creatinine 0.9 mg/dL (0.5-0.9) 01/31/25 15:58 GFR Calculation Not Reportable 01/31/25 15:58 Glucose 150 mg/dL (65-115) H 01/31/25 15:58 Calculated Osmolality 310 mOsm/kg (285-295) H 01/31/25 15:58 Calcium 9.9 mg/dL (8.5-10.5) 01/31/25 15:58 Total Bilirubin 1.2 mg/dL (0.15-1.2) 01/31/25 15:58 AST 25 U/L (0-32) 01/31/25 15:58 ALT 17 U/L (0-33) 01/31/25 15:58 Alkaline Phosphatase 83 U/L (35-105) 01/31/25 15:58 Total Protein 7.3 g/dL (6.6-8.7) 01/31/25 15:58 Albumin 4.3 g/dL (3.5-5.2) 01/31/25 15:58 Globulin 3.0 g/dL (1.3-4.6) 01/31/25 15:58 XR interpretation done by ED provider, pending radiology final review Discharge Plan Discharge Patient Disposition: Home Clinical Impression: Injury of knee, left Qualifiers: Encounter type: initial encounter Qualified Code(s): S89.92XA - Unspecified injury of left lower leg, initial encounter Condition: Stable Prescriptions: No Action metoprolol tartrate 50 mg tablet 75 mg PO BID Qty: 270 3RF Rx Instructions: Take 1.5 tabs twice daily pravastatin 40 mg tablet See Rx Instructions .ROUTE .COMPLEX Qty: 90 3RF Dose Instruction: TAKE 1 TABLET BY MOUTH DAILY AT 7PM Rx Instructions: TAKE 1 TABLET BY MOUTH DAILY AT 7PM chlorthalidone 25 mg tablet 25 mg PO DAILY@07 Qty: 90 2RF furosemide 20 mg tablet 40 mg PO BID Qty: 270 3RF levothyroxine 125 mcg tablet See Rx Instructions .ROUTE .COMPLEX Qty: 90 3RF Dose Instruction: TAKE 1 TABLET BY MOUTH EVERY DAY Rx Instructions: TAKE 1 TABLET BY MOUTH EVERY DAY potassium chloride 20 mEq tablet,ER particles/crystals 20 meq PO BID Qty: 180 3RF Eliquis 5 mg tablet 5 mg PO BID Qty: 180 3RF cholecalciferol (vitamin D3) [Vitamin D3] 25 mcg (1,000 unit) Tablet 1,000 - 5,000 unit PO DAILY@12 cyanocobalamin (vitamin B-12) [Vitamin B-12] 100 mcg Tablet 100 mcg PO DAILY@12 [place] [facility] Vitamin 1 tab PO EVERY OTHER DAY Discharge Orders: Discharge ED (Routine); Ordered 01/31/25 Ordered By: Dorina Renae Referrals: Randolph Solares MD [Primary Care Provider, Family Practice] Patient Instructions: Knee Pain (ED) Activity Restrictions/Additional Instructions: As we discussed, I would recommend a knee sleeve or Rui bandage as well as ice and elevation to the knee. You can take [id number] analgesics such as Tylenol and ibuprofen to help with discomfort. Please follow-up with primary care later next week if symptoms or not improving. Continue to use your crutches to help with ambulation. Print Language: Spanish Coding Level of Care Code ED Director Global Development for Candido Bales
[2025-01-31 18:43] VITALS: BP 117/70; PULSE 68; O2SAT 97
[2025-01-31 18:48] VITALS: BP 117/70; PULSE 68; O2SAT 97
== END 2025-01-31 18:50 | disposition home or self-care (01) ==
PROVIDERS: Family Medicine; Emergency Provider Physician Assistant; PCP Family Medicine
DX: S89.91XA Unspecified injury of right lower leg, initial encounter (principal); W19.XXXA Unspecified fall, initial encounter; E78.5 Hyperlipidemia, unspecified; E11.9 Type 2 diabetes mellitus without complications; I11.0 Hypertensive heart disease with heart failure; I50.9 Heart failure, unspecified; Z79.01 Long term (current) use of anticoagulants
CPT/HCPCS: 36415; 73562; 80053; 85025; 99284

== ENCOUNTER → 2025-03-07 09:23 | Outpatient (BNVA) | payer MEDICARE, OTHER, SELFPAY | PROVIDERS: PCP Family Medicine; Visit Provider Podiatrist Foot & Ankle Surgery | DX: E11.69 Type 2 diabetes mellitus with other specified complication (principal); B35.1 Tinea unguium; I73.9 Peripheral vascular disease, unspecified; L84 Corns and callosities | CPT/HCPCS: 11721 ==

== ENCOUNTER → 2025-05-08 11:58 | Outpatient (BNVA) | payer MEDICARE, OTHER, SELFPAY | PROVIDERS: PCP Family Medicine; Visit Provider Internal Medicine | DX: I48.92 Unspecified atrial flutter (principal); Z79.01 Long term (current) use of anticoagulants; E78.5 Hyperlipidemia, unspecified; I10 Essential (primary) hypertension; I08.0 Rheumatic disorders of both mitral and aortic valves | CPT/HCPCS: 99214 ==

== ENCOUNTER → 2025-05-09 14:45 | Outpatient (BNVA) | payer MEDICARE, OTHER, SELFPAY | PROVIDERS: PCP Family Medicine; Visit Provider Podiatrist Foot & Ankle Surgery | DX: E11.8 Type 2 diabetes mellitus with unspecified complications (principal); B35.1 Tinea unguium; I73.9 Peripheral vascular disease, unspecified; L84 Corns and callosities; L98.9 Disorder of the skin and subcutaneous tissue, unspecified | CPT/HCPCS: 11721; 99213 ==

== ENCOUNTER → 2025-05-22 07:54 | Outpatient (BNVA) | payer MEDICARE, OTHER, SELFPAY | PROVIDERS: PCP Family Medicine; Visit Provider Nurse Practitioner Family | DX: I73.9 Peripheral vascular disease, unspecified (principal); L81.4 Other melanin hyperpigmentation; L57.8 Other skin changes due to chronic exposure to nonionizing radiation; D48.5 Neoplasm of uncertain behavior of skin; L57.0 Actinic keratosis | CPT/HCPCS: 11102; 17000; 99203 ==

== ENCOUNTER → 2025-07-16 13:27 | Outpatient (BNVA) | payer MEDICARE, OTHER, SELFPAY | PROVIDERS: PCP Family Medicine; Visit Provider Family Medicine | DX: I10 Essential (primary) hypertension (principal); I11.0 Hypertensive heart disease with heart failure; I50.32 Chronic diastolic (congestive) heart failure; E78.5 Hyperlipidemia, unspecified; E11.9 Type 2 diabetes mellitus without complications | CPT/HCPCS: 80053; 80061; 83036; 84443; 85025 ==

== ENCOUNTER → 2025-07-18 14:07 | Outpatient (BNVA) | payer MEDICARE, OTHER, SELFPAY | PROVIDERS: PCP Family Medicine; Visit Provider Podiatrist Foot & Ankle Surgery | DX: E11.69 Type 2 diabetes mellitus with other specified complication (principal); B35.1 Tinea unguium; I73.9 Peripheral vascular disease, unspecified; L84 Corns and callosities | CPT/HCPCS: 11055; 11721 ==